=== PATIENT | male | born 1945 | race Caucasian/White ===

== ENCOUNTER → 2016-09-29 | Outpatient (CLI) | payer MEDICARE | LOC: GMAB 10:19 | PROVIDERS: ATTEND Family Medicine | DX: L03.116 Cellulitis of left lower limb (principal); E11.9 Type 2 diabetes mellitus without complications; R53.82 Chronic fatigue, unspecified; Z12.5 Encounter for screening for malignant neoplasm of prostate | CPT/HCPCS: 84403; 84443; 86140; G0103 ==

== ENCOUNTER → 2016-10-14 | Outpatient (CLI) | payer MEDICARE | END | disposition home or self-care (01) | LOC: GMAB 12:54 | PROVIDERS: ATTEND Family Medicine | DX: L03.116 Cellulitis of left lower limb (principal) ==

== ENCOUNTER → 2017-06-13 | Outpatient (CLI) | payer MEDICARE ==
--- NOTE | 2017-06-13 11:59 | RAD ---
EXAM DESCRIPTION: Knee,Right Complete CLINICAL HISTORY: 71 years, Male, PAIN COMPARISON: None TECHNIQUE: 4 views of the right knee FINDINGS: No fracture or dislocation. Bones appear normally mineralized with normal trabecular pattern. Normal appearance of medial and lateral compartments on frontal view. Lateral view shows normal position of the patella. No significant patellar spurring or enthesopathy. Question minimal suprapatellar knee joint effusion. Normal contour of quadriceps and patellar tendons. There is slight lateral right patellar tilt and with minimal subluxation on patellar sunrise view. Sclerotic focus in the posterior proximal right tibial diametaphysis appears benign. IMPRESSION: Negative for fracture or dislocation. Electronically signed by: Gómez Dickerson MD 06/13/2017 11:57 AM CDT
--- NOTE | 2017-06-13 12:37 | RAD ---
EXAM DESCRIPTION: Pelvis CLINICAL HISTORY: 71 years Male, PAIN IN RIGHT HIP COMPARISON: None. TECHNIQUE: Single frontal x-ray view of the hips and pelvis FINDINGS: No fracture. No lytic lesion. Degenerative changes are seen in the lower L-spine. Few phleboliths in the pelvis. Degenerative changes at the pubic symphysis. IMPRESSION: Negative for fracture or dislocation. Electronically signed by: Gómez Dickerson MD 06/13/2017 12:35 PM CDT
== END | disposition home or self-care (01) ==
LOC: RAD 08:04
PROVIDERS: ATTEND Orthopaedic Surgery
DX: M25.551 Pain in right hip (principal); M25.561 Pain in right knee

== ENCOUNTER → 2017-06-15 | Outpatient (CLI) | payer MEDICARE ==
--- NOTE | 2017-06-15 10:34 | MRI ---
MRI right knee without contrast INDICATION: Knee pain concern for meniscal tear medial and lateral pain initial encounter unspecified date of onset TECHNIQUE: Noncontrast MR imaging right knee standard protocol FINDINGS: Moderate joint effusion. Small Ames's cyst. Normal patellofemoral alignment. Mild surface chondrosis grade 2 patellar apex and lateral facet. There is interstitial partial tear of the PCL. The ACL is intact. Extensor tendons are intact. Mild degenerative change throughout the menisci most pronounced in the body and posterior horn medial meniscus. Mild free edge fraying and undersurface fraying posterior horn medial meniscus indicating a low-grade degenerative tear. There is also a diffuse region of grade 3 up to grade 4 chondral thinning along the intercondylar aspect medial femoral condyle. The collateral ligaments are intact. No discrete lateral meniscal tear or advanced lateral tibiofemoral chondrosis. No unstable osteochondral lesion. No fracture or focal destructive process. IMPRESSION: Age-indeterminate PCL partial tear Degenerative medial meniscus with fraying posterior horn undersurface and free edge Chondrosis grade 3-4 intercondylar aspect medial femoral condyle and surface chondrosis grade 2 patellar apex Moderate joint effusion and small Ames's cyst Electronically signed by: Sheldon Hicks MD 06/15/2017 10:33 AM CDT
== END | disposition home or self-care (01) ==
LOC: MRI 08:00
PROVIDERS: ATTEND Orthopaedic Surgery
DX: S83.206A Unspecified tear of unspecified meniscus, current injury, right knee, initial encounter (principal)

== ENCOUNTER → 2017-07-03 | Outpatient (CLI) | payer MEDICARE | LOC: RESP 10:39 | PROVIDERS: ATTEND Orthopaedic Surgery | DX: Z01.818 Encounter for other preprocedural examination (principal) ==

== ENCOUNTER → 2017-07-04 | Outpatient (CLI) | payer MEDICARE ==
--- NOTE | 2017-07-05 13:57 | CT ---
EXAM DESCRIPTION: Chest w/o Contrast : Computed Tomography. CLINICAL HISTORY: UNSPECIFIC ABNORMAL FINDING OF LUNG FLUID COMPARISON: Chest x-ray 07/03/2017. CT scan chest without contrast 11/16/2014. Chest x-ray 04/13/2015. TECHNIQUE: Spiral-axial scans at 5.0 mm intervals through the lungs and thorax without IV contrast. 2.5 mm lung algorithm axial reconstructions. Coronal and sagittal 2.0 Mm reconstructions. Total Exam DLP: 1000.67 mGy-cm. This exam was performed according to our departmental dose-optimization program which includes automated exposure control, adjustment of the mA and/or kV according to patient size and/or use of iterative reconstruction technique; to reduce radiation dose to as low as reasonably achievable (ALARA). FINDINGS: Scarring versus small infiltrate in the lateral superior segment of the right lower lobe. Small subpleural 3 mm nodule lateral right middle lobe (series 4, image 68). No large nodules or infiltrates bilaterally. No dominant masses. No pleural effusion or pneumothorax. Evaluation of the soft tissues is limited due to lack of IV contrast. Left thyroid gland is partially visualized with surgical clips in the right thyroid bed. No adenopathy in the axillary regions. No soft tissue masses in the mediastinum or hilum. No definite hilar enlargement. Atherosclerotic calcifications proximal brachiocephalic vessels and thoracic aorta with coronary artery calcifications. Prior gastric surgery. Included peritoneal space with no fluid. Normal density and size of the adrenal glands and spleen. Spondylosis T8-9 and T9-10 of the thoracic spine. Bony syndesmosis between the lateral left third and fourth ribs. Possible old trauma lateral left sixth rib. Arthrosis right sternoclavicular joint. IMPRESSION: 1. Subpleural 3 mm nodule in the right lateral middle lobe stable since prior chest CT scan in November 2014. Bilateral infiltrates present on the scan were not longer visualized. Stable scarring in the Superior Segment right lower lobe. No bilateral hilar masses or enlargement. 2. Rib fractures on the left seen on the prior CT scan are mostly healed with bony syndesmosis between the lateral left third and fourth ribs. Electronically signed by: Fitz Bucio MD 07/05/2017 1:55 PM CDT
== END ==
LOC: CT 10:30
PROVIDERS: ATTEND Family Medicine
DX: R91.8 Other nonspecific abnormal finding of lung field (principal)

== ENCOUNTER 2017-07-19 05:47 | Day surgery (SDC) | payer MEDICARE ==
--- NOTE | 2017-07-18 11:32 | HP ---
CHIEF COMPLAINT: Right knee pain. HISTORY OF PRESENT ILLNESS: Mr. Santoyo is a 71-year-old male with a history of pain in the knee. He has had an MRI and the knee does show some fraying of the meniscus with chondromalacia. He has had popping with intermittent swelling of the knee. He denies any radiation of pain or neurologic symptoms. Because of the pain he is having and the mechanical type symptoms, he has requested operative intervention. After discussing the risks, benefits and alternatives to that, the patient has given informed consent. PAST SURGICAL HISTORY: 1. Ulnar nerve transposition. MEDICATIONS: 1. Metformin. ALLERGIES: KEFLEX. CODE STATUS: Full code. IMMUNIZATIONS: Up to date. SOCIAL HISTORY: The patient does not smoke or use any illicit drugs. He does drink on occasion. FAMILY HISTORY: None pertinent to today's complaint. REVIEW OF SYSTEMS: Negative except as indicated in the History of Present Illness. PHYSICAL EXAMINATION: VITAL SIGNS: Blood pressure 122/64. Pulse 91. Height 5'11". Weight 246 pounds. MENTAL STATUS: The patient is awake, alert, and is able to give a good history and participate in the physical. The patient is oriented to person, place and time. SKIN: Normal tone and turgor. MUSCULOSKELETAL: He has pretty extreme tenderness along the medial aspect of the knee. He has palpable clicking with range of motion in addition to positive Aundrea's. He has a slight effusion. No varus/valgus or anterior/ posterior laxity. Sensation is intact. Strength is 5/5. He does lack about 5 degrees of extension. Flexion is to about 120 degrees. ASSESSMENT: 1. Medial meniscus tear. 2. Chondromalacia. PLAN: At this point, we have discussed the risks, benefits, and alternatives to operative therapy. Mr. Santoyo has given informed consent for knee arthroscopy. #[id number] [facility]
[2017-07-19] MEDS ORDERED: SODIUM CHL 0.9% 100ML MINI-BAG 0 ML IVPB ONE (06:02)
[2017-07-19] MEDS ORDERED: LACTATED RINGERS 1,000 ML ONE ×2 (06:03→07:28)
[2017-07-19] MEDS ORDERED: ceFAZolin SODIUM 1 GM VIAL ONE (06:03)
[2017-07-19] MEDS ORDERED: MIDAZOLAM INJ 2 MG/2 ML VIAL ONE (09:30)
[2017-07-19] MEDS ORDERED: fentaNYL CITRATE INJ 50 MCG/ML AMP ONE (09:31)
[2017-07-19] MEDS ORDERED: VANCOMYCIN HCL INJ 1,000 MG VIAL IVPB ONE ×3 (09:40→10:37)
[2017-07-19] MEDS ORDERED: SODIUM CHLORIDE 0.9% 250ML 250 ML ONE (09:48)
[2017-07-19] MEDS ORDERED: PROPOFOL 200 MG/20 ML VIAL IV ONE (10:00)
[2017-07-19] MEDS ORDERED: LIDOCAINE 1% 10 ML VIAL INJ ONE (10:00)
[2017-07-19] MEDS ORDERED: DEXAMETHASONE INJ 10 MG/ML VIAL IV ONE (10:00)
[2017-07-19] MEDS ORDERED: raNITIdine HCL INJ 25 MG/ML VIAL IV ONE (10:00)
[2017-07-19] MEDS ORDERED: METOCLOPRAMIDE HCL INJ 10 MG/2 ML VIAL IV ONE (10:00)
[2017-07-19] MEDS ORDERED: ROCURONIUM BROMIDE 10 MG/ML VIAL ONE (10:09)
[2017-07-19] MEDS: BUPIVACAINE 0.25% W/EPI 50 ML VIAL INJ ONE ×2 (10:15→10:47)
[2017-07-19] MEDS ORDERED: SUGAMMADEX SODIUM 200 MG/2 ML VIAL IV ONE (10:22)
[2017-07-19 13:05] VITALS: BP 125/82; TEMP 98.1; O2SAT 96
--- NOTE | 2017-07-26 11:27 | OP ---
DATE OF PROCEDURE: 07/19/17 PREOPERATIVE DIAGNOSIS: 1. Knee pain and mechanical symptoms. POSTOPERATIVE DIAGNOSIS: 1. Advanced degenerative changes of the knee. PROCEDURE: 1. Chondroplasty. SURGEON: Soren Burnett MD. BOWLING FLOOR MANAGER: Fitz Monzon CST, SA-C. ANESTHESIA: General. COMPLICATIONS: None. FINDINGS: 1. Large full thickness defects involving the medial femoral condyle with large approximately 5 mm flap tear and unstable cartilaginous base. 2. Degenerative fraying of the medial meniscus. 3. Normal anterior cruciate ligament and normal posterior cruciate ligament. 4. Normal lateral meniscus. 5. Grade 3 degenerative changes of the lateral tibial plateau. 6. Normal lateral gutter. 7. Normal suprapatellar pouch. 8. Degenerative changes of the patellofemoral joint. 9. Normal medial gutter. INDICATION: Mr. Santoyo has a history of both pain and mechanical symptoms in the knee. Because of his ongoing pain and mechanical symptoms, we discussed options for him. After discussing the risks, benefits and alternatives to operative therapy, the patient has given informed consent. PROCEDURE: The patient was brought to the Operating Room and placed in supine position. General anesthesia was induced and the patient's leg was sterilely prepped and draped. Following prepping and draping, standard anteromedial and anterolateral portals were established. Diagnostic arthroscopy was carried out with the above findings. Following complete diagnostic arthroscopy, attention was focused on the medial femoral condyle. The cartilaginous surfaces were debrided to stable base and the large flap tear of cartilage was removed. Attention was then directed at the lateral tibial plateau. A 3.5 mm full radius shaver was used to debride the tibial plateau. The knee was thoroughly irrigated and drained. Following irrigating and draining of the knee, the wounds were closed with Nylon suture. Sterile dressings were placed. The patient was awoken from anesthesia and taken to Recovery. POSTOPERATIVE INSTRUCTIONS: The patient will be partial weightbearing until followup with us. We will discuss further treatment options for him based on his response. #[id number] [facility] SYSTEM[facility]
== END 2017-07-19 12:05 | disposition home or self-care (01) ==
LOC: AMB 05:47
PROVIDERS: ATTEND Orthopaedic Surgery
DX: M23.203 Derangement of unspecified medial meniscus due to old tear or injury, right knee (principal); M94.261 Chondromalacia, right knee; M17.11 Unilateral primary osteoarthritis, right knee; E11.9 Type 2 diabetes mellitus without complications; E66.9 Obesity, unspecified; Z68.34 Body mass index [BMI] 34.0-34.9, adult; Z88.8 Allergy status to other drugs, medicaments and biological substances; Z79.84 Long term (current) use of oral hypoglycemic drugs
CPT/HCPCS: 01400; 29877; 36416; 82948; J1100; J2250; J2765; J2780; J3010; J3370; J3490; J7050; J7120

== ENCOUNTER → 2018-05-24 | Outpatient (CLI) | payer MEDICARE | LOC: GMAE 10:54 | PROVIDERS: ATTEND Family Medicine | DX: I10 Essential (primary) hypertension (principal); Z12.5 Encounter for screening for malignant neoplasm of prostate | CPT/HCPCS: 84443; G0103 ==

== ENCOUNTER → 2018-06-18 | Outpatient (CLI) | payer MEDICARE ==
--- NOTE | 2018-06-18 12:14 | US ---
EXAM DESCRIPTION: Aorta: Ultrasound. CLINICAL HISTORY: ENCOUNTER FOR SCREENING FOR OTHER DISORDER COMPARISON: Chest CT scan without contrast 07/04/2017. TECHNIQUE: Transcutaneous scanning: Two-dimensional and Doppler modes. FINDINGS: Abdominal aorta diameter - Proximal: 2.8 x 2.7 x 2.1 cm. Mid: 2.8 x 2.3 x 2.1 cm. Distal: 2.3 x 1.9 x 1.8 cm. Common Iliac diameter -cannot be evaluated due to intestinal gas. Other: Atherosclerotic irregularity of the intima of the aorta.. IMPRESSION: Proximal and mid abdominal aorta with maximum diameter 2.8 cm consistent with ectasia. [facility] Best Practice recommendations: no further imaging follow-up recommended. Electronically signed by: Fitz Bucio MD 06/18/2018 12:11 PM CDT
== END ==
LOC: US 06-14 09:12
PROVIDERS: ATTEND Family Medicine
DX: Z13.89 Encounter for screening for other disorder (principal); I77.811 Abdominal aortic ectasia

== ENCOUNTER 2018-10-28 13:01 | Emergency (ER) | payer MEDICARE ==
[2018-10-28] MEDS ORDERED: SODIUM CHLORIDE 0.9% 1000ML 1,000 ML IVS ONE (13:32)
[2018-10-28] MEDS ORDERED: IPRATROPIUM/ALBUTEROL 3 ML VIAL NEB ONE (13:32)
--- NOTE | 2018-10-28 13:36 | ED.PDOC ---
History of Present Illness - General Chief Complaint: Problem Stated Complaint: Urgency, frequency, aching all over Time Seen by Provider: 10/28/18 13:31 Source: patient, family Exam Limitations: no limitations - History of Present Illness Initial Comments: patient comes in today for all over body aches and change in urination. Patient states on Monday started having body aches and malaise with subjective fever, sweats, and chills. Patient states he is also noted that although it doesn't hurt to urinate when he urinated only to pass a small amount 8 having to go more often. He had an episode of prostatitis several years ago and those symptoms are very similar. Patient had no nausea, vomiting, diarrhea, or constipation. He's had no cough or nasal congestion and no shortness of breath. However, patient states every time he goes into the doctor's office his oxygen levels are low but he has never been tried on breathing treatments nor has he had spirometry. Patient was a long-time smoker but switched to vaping 8 years ago. Patient has a past medical history of diabetes mellitus but no hypertension, hyperlipidemia or coronary artery disease. Timing/Duration: getting worse Severity: moderate Improving Factors: nothing Worsening Factors: nothing Associated Symptoms: fever/chills, malaise, other - urinary frequency and decreased flow Allergies/Adverse Reactions: Allergies Cephalexin [From Keflex] Allergy (Verified 10/28/18 13:17) Rash Home Medications: Ambulatory Orders Metformin HCl [Metformin Hydrochloride] 500 mg PO BID 12/27/13 Oxybutynin Chloride 5 mg PO TID 10/28/18 Sulfa/Trimeth 800/160 (Ds) Tab [Bactrim DS] 1 tablet PO BID 28 Days #56 tab 10/28/18 Review of Systems - Review of Systems Constitutional: States: chills, diaphoresis, fever, malaise EENTM: States: no symptoms reported. Denies: blurred vision, ear pain, ear discharge, nose congestion, throat pain Respiratory: States: no symptoms reported. Denies: cough, short of breath, wheezing Cardiology: States: no symptoms reported. Denies: chest pain, edema, palpitations Gastrointestinal/Abdominal: States: no symptoms reported. Denies: abdominal pain, constipation, diarrhea, nausea, vomiting Genitourinary: States: see HPI Past Medical History (General) - Patient Medical History Hx Seizures: No Hx Stroke: No Hx Dementia: No Hx Asthma: No Hx of COPD: No Hx Cardiac Disorders: No Hx Congestive Heart Failure: No Hx Pacemaker: No Hx Hypertension: Yes Hx Thyroid Disease: No Hx Diabetes: Yes Hx Gastroesophageal Reflux: No Hx Renal Disease: No Hx Cancer: Yes - skin carcinoma on nose Hx of HIV: No Hx Hepatitis C: No Hx MRSA: No Surgical History: cholecystectomy, colectomy - Vaccination History Hx Tetanus, Diphtheria Vaccination: No Hx Influenza Vaccination: Yes Hx Pneumococcal Vaccination: Yes - Social History Hx Tobacco Use: Yes - Quit smoking cigs 2009; Does vape Hx Chewing Tobacco Use: No Hx Alcohol Use: No Hx Substance Use: No Hx Substance Use Treatment: No Hx Depression: No Hx Physical Abuse: No Hx Emotional Abuse: No Hx Suspected Abuse: No - Female History Patient : No Family Medical History - Family History Father Living Status: Hx Family Diabetes: Yes Hx Family Cancer: Yes Hx Family;Other: Father: Lung cancer Mother Living Status: Hx Family Cancer: Yes Hx Family;Other: Mother: Breast Cancer Physical Exam - Physical Exam General Appearance: Alert, Comfortable, No apparent distress Eye Exam: bilateral normal Ears, Nose, Throat: hearing grossly normal, normal ENT inspection, normal phary nx Neck: non-tender, full range of motion, supple, normal inspection Respiratory: chest non-tender, no respiratory distress, decreased breath sounds Cardiovascular/Chest: normal peripheral pulses, regular rate, rhythm, no edema, no murmur Peripheral Pulses: radial,right: 2+, radial,left: 2+ Gastrointestinal/Abdominal: normal bowel sounds, non tender, soft Rectal Exam: other - enlarged boggy prostate Back Exam: no CVA tenderness Neurologic: alert, oriented x 3 Progress - Progress Progress: 10/28/18 15:14 improved O2 sats and air flow after Duoneb. Patient understands that needs further studies and possibly O2 at night. Will need to follow up with PCP. - Results/Orders Results/Orders: 10/28/18 14:29 Urine Culture Stat 10/29/18 09:00 Oxygen Daily [facility] Daily Laboratory Results WBC 12.0 K/mm3 (4.8-10.8) H 10/28/18 13:32 RBC 4.94 M/mm3 (4.70-6.10) 10/28/18 13:32 Hgb 15.1 gm/dL (14.0-18.0) 10/28/18 13:32 Hct 44.4 % (42.0-52.0) 10/28/18 13:32 MCV 89.9 fl (80.0-94.0) 10/28/18 13:32 MCH 30.5 pg (27.0-31.0) 10/28/18 13:32 MCHC 33.9 g/dL (33.0-37.0) 10/28/18 13:32 RDW 13.9 % (11.5-14.5) 10/28/18 13:32 Plt Count 141 K/mm3 (130-400) 10/28/18 13:32 MPV 8.1 fl (7.40-10.4) 10/28/18 13:32 Absolute Neuts (auto) 10.20 K/uL (1.8-6.8) H 10/28/18 13:32 Absolute Lymphs (auto) 0.60 K/uL (1.0-3.4) L 10/28/18 13:32 Absolute Monos (auto) 1.00 K/uL (0.2-0.8) H 10/28/18 13:32 Absolute Eos (auto) 0.10 K/uL (0.0-0.4) 10/28/18 13:32 Absolute Basos (auto) 0.10 K/uL (0.0-0.1) 10/28/18 13:32 Neutrophils % 85.2 % (42.0-78.0) H 10/28/18 13:32 Lymphocytes % 5.1 % (20.0-50.0) L 10/28/18 13:32 Monocytes % 8.4 % (2.0-9.0) 10/28/18 13:32 Eosinophils % 0.8 % (1.0-5.0) L 10/28/18 13:32 Basophils % 0.5 % (0.0-2.0) 10/28/18 13:32 Sodium 134 mmol/L (135-145) L 10/28/18 13:32 Potassium 4.3 mmol/L (3.6-5.0) 10/28/18 13:32 Chloride 98 mmol/L (101-111) L 10/28/18 13:32 Carbon Dioxide 27 mmol/L (21-31) 10/28/18 13:32 Anion Gap 13.3 (12-18) 10/28/18 13:32 BUN 17 mg/dL (7-18) 10/28/18 13:32 Creatinine 0.63 mg/dL (0.6-1.3) 10/28/18 13:32 BUN/Creatinine Ratio 27.0 (10-20) H 10/28/18 13:32 Random Glucose 331 mg/dL (70-105) H 10/28/18 13:32 Serum Osmolality 282.7 mOsm/L (275-295) 10/28/18 13:32 Lactic Acid 1.5 mmol/L (0.5-2.2) 10/28/18 13:32 Calcium 8.5 mg/dL (8.4-10.2) 10/28/18 13:32 Total Bilirubin 2.4 mg/dL (0.2-1.0) H* 10/28/18 13:32 AST 21 IU/L (10-42) 10/28/18 13:32 ALT 18 IU/L (10-60) 10/28/18 13:32 Alkaline Phosphatase 76 IU/L (42-121) 10/28/18 13:32 Serum Total Protein 6.5 gm/dL (6.4-8.2) 10/28/18 13:32 Albumin 3.3 g/dl (3.2-5.5) 10/28/18 13:32 Globulin 3.2 gm/dL (2.3-3.5) 10/28/18 13:32 Albumin/Globulin Ratio 1.0 (1.1-1.9) L 10/28/18 13:32 Urine Color Yellow (Yellow) 10/28/18 14:29 Urine Appearance Cloudy (Clear) 10/28/18 14:29 Urine pH 5.5 (4.5-7.8) 10/28/18 14:29 Ur Specific [place] 1.020 (1.005-1.030) 10/28/18 14:29 Urine Protein Negative mg/dL 10/28/18 14:29 Urine Glucose (UA) >=1000 mg/dL (Negative) H 10/28/18 14:29 Urine Ketones 15 mg/dL (NEGATIVE) H 10/28/18 14:29 Urine Blood Small (Negative) H 10/28/18 14:29 Urine Nitrite Positive H 10/28/18 14:29 Urine Bilirubin Negative (NEGATIVE) 10/28/18 14:29 Urine Urobilinogen 4.0 mg/dL (0.2-1.0) H 10/28/18 14:29 Ur Leukocyte Esterase Trace (Negative) H 10/28/18 14:29 Urine RBC 0-1 /hpf 10/28/18 14:29 Urine WBC 5-10 /hpf H 10/28/18 14:29 Ur Epithelial Cells 0 /hpf 10/28/18 14:29 Urine Bacteria 2+ H 10/28/18 14:29 Patient Name: JAYLEN RODRIGUEZ Gender: Male Date of : 1945 Referring Physician: JUNIOR WALLACE Organization: [facility] Accession Number: [id number] Requested Date: October 28, 2018 13:32 Report Status: Final Requested Procedure: 1 Procedure Description: Chest,2 Views Modality: CR Findings Reporting MD: Nirali Valle Fellow MD: Not available Dictation Time: Dog Warden: Not available Java Sdet Date: EXAM: XR Chest, 2 Views CLINICAL HISTORY: shortness of breath TECHNIQUE: Frontal and lateral views of the chest. COMPARISON: 07/04/2017. FINDINGS: Limitations: None. Lungs: Mild atelectasis and/or scarring in both lung bases. Pleural space: Unremarkable. No pneumothorax. Heart: Unremarkable. No cardiomegaly. Mediastinum: Unremarkable. Bones/joints: Unremarkable. Upper abdomen: Stable right diaphragmatic elevation. IMPRESSION: Mild atelectasis and/or scarring in both lung base Departure - Departure Clinical Impression: Hypoxia Prostatitis Qualifiers: Prostatitis type: acute Qualified Code(s): N41.0 - Acute prostatitis Disposition: Discharge to Home or Self Care Condition: Fair Departure Forms: ED Discharge - Pt. Copy, Patient Portal Self Enrollment Referrals: JESSE HIGGINS MD [Primary Care Provider] - 1-2 Weeks Prescriptions: Sulfa/Trimeth 800/160 (Ds) Tab [Bactrim DS] 1 tablet PO BID 28 Days #56 tab Home Medications: Ambulatory Orders Metformin HCl [Metformin Hydrochloride] 500 mg PO BID 12/27/13 Oxybutynin Chloride 5 mg PO TID 10/28/18 Sulfa/Trimeth 800/160 (Ds) Tab [Bactrim DS] 1 tablet PO BID 28 Days #56 tab 10/28/18 Additional Instructions: follow up in clinic with PCP on Monday. Will need O2 study and spirometry for hypoxia improved with breathing treatment. Return to ER for intractable emesis, shortness of breath, chest pain. Stop Vaping
[2018-10-28] MEDS ORDERED: SULFA/TRIMETH 800/160 (DS) TAB 1 EA TAB PO ONE (14:46)
--- NOTE | 2018-10-28 14:53 | RAD ---
EXAM: XR Chest, 2 Views CLINICAL HISTORY: shortness of breath TECHNIQUE: Frontal and lateral views of the chest. COMPARISON: 07/04/2017. FINDINGS: Limitations: None. Lungs: Mild atelectasis and/or scarring in both lung bases. Pleural space: Unremarkable. No pneumothorax. Heart: Unremarkable. No cardiomegaly. Mediastinum: Unremarkable. Bones/joints: Unremarkable. Upper abdomen: Stable right diaphragmatic elevation. IMPRESSION: Mild atelectasis and/or scarring in both lung bases. Electronically signed by: Nirali Valle MD 10/28/2018 2:52 PM CDT
[2018-10-28 16:08] VITALS: BP 120/76; TEMP 98.7; O2SAT 95
== END 2018-10-28 15:20 | disposition home or self-care (01) ==
LOC: ER 13:01
DX: R09.02 Hypoxemia (principal); N41.0 Acute prostatitis; F17.290 Nicotine dependence, other tobacco product, uncomplicated; E11.9 Type 2 diabetes mellitus without complications; Z85.828 Personal history of other malignant neoplasm of skin; Z79.84 Long term (current) use of oral hypoglycemic drugs; Z79.899 Other long term (current) drug therapy; Z88.1 Allergy status to other antibiotic agents
CPT/HCPCS: 36415; 71046; 80053; 81001; 83605; 85025; 87077; 87086; 87186; 94640; J7030; J7620

== ENCOUNTER → 2018-11-09 | Outpatient (CLI) | payer MEDICARE ==
[~2018-11-09] MED LIST: ALBUTEROL SULFATE 2.5 MG/3 ML VIAL NEB ONE
== END ==
LOC: RESP 10:04
PROVIDERS: ATTEND Family Medicine
DX: R09.02 Hypoxemia (principal)
CPT/HCPCS: 94060; J7611

== ENCOUNTER → 2019-01-14 | Outpatient (CLI) | payer MEDICARE ==
--- NOTE | 2019-01-14 13:42 | RAD ---
EXAM DESCRIPTION: Chest,2 Views CLINICAL HISTORY: RESTRICTIVE LUNG DISEASE COMPARISON: Previous study October 28, 2018 TECHNIQUE: PA/lateral FINDINGS: Plate and screws of the left clavicle. Right hemidiaphragm is elevated. Small lung volumes. Heart size is normal with normal pulmonary vascularity. No pleural effusion or pneumothorax. Discoid atelectasis in both lung bases. No consolidating infiltrate. Lateral view shows intact sternum and T-spine. IMPRESSION: No acute process is identified in the chest. Electronically signed by: Gómez Dickerson MD 01/14/2019 1:40 PM VISCOSITY INSPECTOR
== END ==
LOC: RAD 12:15
PROVIDERS: ATTEND Internal Medicine
DX: J98.4 Other disorders of lung (principal); Q79.1 Other congenital malformations of diaphragm

== ENCOUNTER → 2019-01-23 | Outpatient (CLI) | payer MEDICARE ==
--- NOTE | 2019-01-23 16:55 | CT ---
PROCEDURE: Chest w/o Contrast CLINICAL HISTORY: 73 years Male RESTRICTIVE LUNG DISEASE COMPARISON: 07/04/2017. TECHNIQUE: Contiguous axial images were obtained through the chest without IV contrast. Reformatted images obtained. Multiplanar reformatted images obtained. This exam was performed according to our department optimization program which includes automated exposure control, adjustment of the mA and/or kv according to patient size and/or use of iterative reconstruction technique. FINDINGS: Aorta is normal in caliber without evidence of aneurysm or rupture. There is calcification in aorta and in the coronary arteries. No significant mediastinal or hilar adenopathy. No pleural or pericardial effusion. Elevation of the right hemidiaphragm there is a small amount of atelectasis in the right middle lobe. There is atelectasis in the right lung base which appears to have increased when compared to the previous examination. Some developing infiltrate within this is thought less likely although not excluded. Areas of atelectasis are also present along the left lung base and lingula which appear more prominent than on the previous exam. No additional evidence to suggest alveolar consolidation or pneumothorax. Small nodule in the right middle lobe is not well seen on today's examination. IMPRESSION: Elevation of the right hemidiaphragm with atelectasis in the right middle lobe and increasing density in the right perihilar region and lower lobe suggesting atelectasis. Small amount of associated infiltrate is not entirely excluded Additional areas of atelectasis in the anterior left lower lobe and lingula No significant thoracic adenopathy Electronically signed by: Ashly Ovalles MD 01/23/2019 4:53 PM RN [facility]RG[facility]
== END ==
LOC: CT 15:31
PROVIDERS: ATTEND Internal Medicine
DX: J98.4 Other disorders of lung (principal); J98.11 Atelectasis

== ENCOUNTER → 2019-06-26 | Outpatient (CLI) | payer MEDICARE | LOC: GMAE 11:30 | PROVIDERS: ATTEND Family Medicine | DX: I10 Essential (primary) hypertension (principal); E11.9 Type 2 diabetes mellitus without complications; Z12.5 Encounter for screening for malignant neoplasm of prostate | CPT/HCPCS: 84443; G0103 ==

== ENCOUNTER → 2019-08-16 | Outpatient (CLI) | payer MEDICARE ==
--- NOTE | 2019-08-19 08:16 | RAD ---
EXAM DESCRIPTION: Chest,2 Views CLINICAL HISTORY: EVALUATE FOR RT HEMIDIAPHRAGM PARALYSIS COMPARISON: Previous chest x-ray January 14, 2019, CT chest January 23, 2019 TECHNIQUE: PA/lateral FINDINGS: Right hemidiaphragm is elevated. Inspiratory and expiratory views are obtained then findings would suggest decreased movement of the right diaphragm compared to the left side. Heart size is prominent with centrally prominent pulmonary vascularity. Plate and screws in the left clavicle. Linear scarring or discoid atelectasis in the peripheral left lung base. Old healed left rib fractures. No pleural effusion or pneumothorax. Lungs are clear with no consolidating infiltrate. Lateral view shows intact sternum and T-spine. IMPRESSION: Elevated right hemidiaphragm. Discoid atelectasis in the left lung base. Electronically signed by: Gómez Dickerosn MD 08/19/2019 8:14 AM CDT
== END ==
LOC: RAD 16:06
PROVIDERS: ATTEND Internal Medicine
DX: Q79.1 Other congenital malformations of diaphragm (principal); J98.11 Atelectasis; J18.9 Pneumonia, unspecified organism; J81.1 Chronic pulmonary edema; R09.02 Hypoxemia; J98.4 Other disorders of lung

== ENCOUNTER → 2019-12-17 | Outpatient (CLI) | payer MEDICARE | LOC: GMAE 14:22 | PROVIDERS: ATTEND Family Medicine | DX: Z01.818 Encounter for other preprocedural examination (principal) ==

== ENCOUNTER 2020-01-31 09:27 | Inpatient (IN) | payer MEDICARE ==
--- NOTE | 2020-01-31 09:38 | ED.PDOC ---
History of Present Illness - General Time Seen by Provider: 01/31/20 09:29 Source: patient, RN notes reviewed, Vital Signs reviewed Exam Limitations: no limitations - History of Present Illness Comments: 74 yo male hx of CAD comes in with 2 days of generalized malaise, sore throat, fatigue, body aches. no shortness of breath, but does have cough. no change in tatste or smell. Was seen in urgent care had resp panel done, was told due to his symptoms he should be evaluated in ER. denies any chest pain. patient use to be on oxygen for a hemidiaphragm, but no longer on oxygen. Allergies/Adverse Reactions: Allergies Cephalexin [From Keflex] Allergy (Verified 01/31/20 10:03) Rash Home Medications: Ambulatory Orders Metformin HCl [Metformin Hydrochloride] 500 mg PO BID 12/27/13 Semaglutide [Ozempic] 2 mg SC WKLY 01/31/20 Review of Systems - Review of Systems Constitutional: States: malaise. Denies: chills, fever EENTM: States: throat pain. Denies: blurred vision, nose congestion Respiratory: States: cough. Denies: short of breath Cardiology: Denies: chest pain, palpitations, syncope Gastrointestinal/Abdominal: Denies: abdominal pain, diarrhea, nausea, vomiting Genitourinary: Denies: frequency, hematuria Musculoskeletal: States: muscle pain. Denies: back pain Skin: Denies: rash Neurological: Denies: numbness, paresthesia, pre-existing deficit, tremors, weakness Endocrine: Denies: unexplained weight gain, unexplained weight loss Hematologic/Lymphatic: Denies: easy bleeding, easy bruising Past Medical History (General) - Patient Medical History Hx Seizures: No Hx Stroke: No Hx Dementia: No Hx Asthma: No Hx of COPD: No Hx Cardiac Disorders: Yes - 2 stents Hx Congestive Heart Failure: No Hx Pacemaker: No Hx Hypertension: Yes Hx Thyroid Disease: No Hx Diabetes: Yes Hx Gastroesophageal Reflux: No Hx Renal Disease: No Hx Cancer: Yes - skin carcinoma on nose Hx of HIV: No Hx Hepatitis C: No Hx MRSA: No Surgical History: other - cardiac stents x 2 - Vaccination History Hx Tetanus, Diphtheria Vaccination: No Hx Influenza Vaccination: Yes Hx Pneumococcal Vaccination: Yes - Social History Hx Tobacco Use: Yes - Quit smoking cigs 2009; Does vape Hx Chewing Tobacco Use: No Hx Alcohol Use: No Hx Substance Use: No Hx Substance Use Treatment: No Hx Depression: No Hx Physical Abuse: No Hx Emotional Abuse: No Hx Suspected Abuse: No - Female History Patient : No Family Medical History - Family History Father Living Status: Hx Family Diabetes: Yes Hx Family Cancer: Yes Hx Family;Other: Father: Lung cancer Mother Living Status: Hx Family Cancer: Yes Hx Family;Other: Mother: Breast Cancer Physical Exam - Physical Exam General Appearance: Alert, Comfortable, No apparent distress, Well Developed, Well Groomed, Well Hydrated, Well Nourished Eye Exam: bilateral normal ENT Exam: normal ENT inspection, hearing grossly normal, TMs normal Neck: non-tender, full range of motion, supple, normal inspection, trachea midline Respiratory: chest non-tender, lungs clear, normal breath sounds, no respiratory distress, no accessory muscle use Cardiovascular/Chest: normal peripheral pulses, regular rate, rhythm, no edema, no gallop, no JVD, no murmur Gastrointestinal/Abdominal: normal bowel sounds, non tender, soft, no organomegaly, no pulsatile mass Extremity: normal range of motion, non-tender, normal inspection, no pedal edema, no calf tenderness, normal capillary refill Neurologic: seasonal greenery bundler II-XII nml as tested, no motor/sensory deficits, alert, normal mood/affect, oriented x 3 Skin Exam: normal color, warm/dry Progress - Progress Progress: 01/31/20 15:52 patient COVID + given remdesivir, dexamethasone. will monitor glucose closely. given NS bolus for hyperglycemia. may need to put on insulin while on steroids. The data reviewed when caring for this patient included: nurse notes, prior records, etc. The history and assessments from nurses notes were reviewed and considered, and the patient's home medication list was also reviewed and co nsidered. My assessment and the results of testing completed here in the ED were discussed with the patient/family. All questions were answered, and they express understanding of my assessment and the plan. patient was transferred to floor in stable condition. Melina Rebolledo DO #[id number] - Results/Orders Results/Orders: 01/31/20 09:45 Pulse Ox, Continuous Monitoring STAT 01/31/20 10:18 STREP A SCREEN CULTURE Stat 01/31/20 13:39 ED Intent to Admit Routine 02/01/20 09:45 Pulse Ox, Continuous Monitoring STAT 02/02/20 09:45 Pulse Ox, Continuous Monitoring STAT Laboratory Results WBC 3.6 K/mm3 (4.8-10.8) L 01/31/20 10:05 RBC 5.15 M/mm3 (4.70-6.10) 01/31/20 10:05 Hgb 15.8 gm/dL (14.0-18.0) 01/31/20 10:05 Hct 46.5 % (42.0-52.0) 01/31/20 10:05 MCV 90.3 fl (80.0-94.0) 01/31/20 10:05 MCH 30.6 pg (27.0-31.0) 01/31/20 10:05 MCHC 33.9 g/dL (33.0-37.0) 01/31/20 10:05 RDW 13.3 % (11.5-14.5) 01/31/20 10:05 Plt Count 138 K/mm3 (130-400) 01/31/20 10:05 MPV 7.8 fl (7.40-10.4) 01/31/20 10:05 Absolute Neuts (auto) 2.20 K/uL (1.8-6.8) 01/31/20 10:05 Absolute Lymphs (auto) 0.50 K/uL (1.0-3.4) L 01/31/20 10:05 Absolute Monos (auto) 0.80 K/uL (0.2-0.8) 01/31/20 10:05 Absolute Eos (auto) 0.10 K/uL (0.0-0.4) 01/31/20 10:05 Absolute Basos (auto) 0.00 K/uL (0.0-0.1) 01/31/20 10:05 Neutrophils % 62.8 % (42.0-78.0) 01/31/20 10:05 Lymphocytes % 13.8 % (20.0-50.0) L 01/31/20 10:05 Monocytes % 21.2 % (2.0-9.0) H 01/31/20 10:05 Eosinophils % 1.5 % (1.0-5.0) 01/31/20 10:05 Basophils % 0.7 % (0.0-2.0) 01/31/20 10:05 PTT (SP) 26.1 SECONDS (21.8-31.6) 01/31/20 10:05 D-Dimer, Quantitative < 131.0 ng/ml (131-400) L 01/31/20 10:05 Sodium 139 mmol/L (135-145) 01/31/20 10:05 Potassium 4.3 mmol/L (3.6-5.0) 01/31/20 10:05 Chloride 102 mmol/L (101-111) 01/31/20 10:05 Carbon Dioxide 28 mmol/L (21-31) 01/31/20 10:05 Anion Gap 13.3 (12-18) 01/31/20 10:05 BUN 18 mg/dL (7-18) 01/31/20 10:05 Creatinine 0.61 mg/dL (0.6-1.3) 01/31/20 10:05 BUN/Creatinine Ratio 29.5 (10-20) H 01/31/20 10:05 Random Glucose 213 mg/dL (70-105) H 01/31/20 10:05 Serum Osmolality 285.8 mOsm/L (275-295) 01/31/20 10:05 Calcium 8.6 mg/dL (8.4-10.2) 01/31/20 10:05 Magnesium 1.8 mg/dL (1.8-2.5) 01/31/20 10:05 Total Bilirubin 1.1 mg/dL (0.2-1.0) H 01/31/20 10:05 AST 18 IU/L (10-42) 01/31/20 10:05 ALT 21 IU/L (10-60) 01/31/20 10:05 Alkaline Phosphatase 61 IU/L (42-121) 01/31/20 10:05 LD Total 115 IU/L (91-180) 01/31/20 10:05 Creatine Kinase 71 IU/L (38-174) 01/31/20 10:05 Troponin I < 0.02 ng/mL (0.01-0.05) 01/31/20 10:05 C-Reactive Protein 1.2 mg/dL (0-1.0) H 01/31/20 10:05 B-Natriuretic Peptide < 15.0 pg/ml (0-100) 01/31/20 10:05 Serum Total Protein 7.0 gm/dL (6.4-8.2) 01/31/20 10:05 Albumin 3.8 g/dl (3.2-5.5) 01/31/20 10:05 Globulin 3.2 gm/dL (2.3-3.5) 01/31/20 10:05 Albumin/Globulin Ratio 1.2 (1.1-1.9) 01/31/20 10:05 Group A Strep Rapid Negative (NEGATIVE) 01/31/20 10:18 - EKG/XRAY/CT XRAY: chest - cardiomeagly, pulmonary congestion, right hemidiaphragm Departure - Departure Clinical Impression: Hypoxia, COVID-19 Home Medications: Ambulatory Orders Metformin HCl [Metformin Hydrochloride] 500 mg PO BID 12/27/13 Semaglutide [Ozempic] 2 mg SC WKLY 01/31/20 Decision To Admit - Decistion To Admit Decision to Admit Reason: Medical Nature Decision to Admit Date: 01/31/20 Decision to Admit Time: 10:20
--- NOTE | 2020-01-31 10:06 | RAD ---
EXAM DESCRIPTION: Chest,1 View CLINICAL HISTORY: covid FINDINGS/ IMPRESSION: Comparison 08/16/2019 Mild cardiomegaly. Prominent central vasculature. No edema, infiltrate or effusion. Continued elevation of the right hemidiaphragm Electronically signed by: Donovan Borges MD 01/31/2020 10:04 AM [facility]
[2020-01-31] MEDS ORDERED: REMDESIVIR 200 MG in SODIUM CHLORIDE 0.9% 250ML 250 ML IVPB ONE (10:33)
[2020-01-31] MEDS ORDERED: DEXAMETHASONE INJ 4 MG/ML VIAL IV ONE (11:37)
[2020-01-31] MEDS ORDERED: SODIUM CHLORIDE 0.9% 1000ML 1,000 ML IVS ONE (11:37)
--- NOTE | 2020-01-31 14:55 | HP ---
SUPERVISING PHYSICIAN: Juan F Henriquez MD CHIEF COMPLAINT: Shortness of breath. HISTORY OF PRESENT ILLNESS: This is a 74 year-old male patient with a medical history of diabetes who came to the Emergency Room with a 2-day history of malaise, sore throat, fatigue, body aches. He has significant complaint of shortness of breath, however, was seen at the [facility] and Covid tested. Apparently, this came back positive. He came to the Emergency Room due to low 02 saturations. In the Emergency Room, his workup revealed initial vital signs of oxygen saturations of 92% on room air which dropped to the high 80s at times. Therefore, he was placed on oxygen. Additional lab work was done and showed a white count of 3.6, stable hemoglobin, D-dimer less than 131. CRP 1.2, glucose elevated at 214, total bilirubin 1.1. Troponin negative. Chest x-ray was done and showed a little bit of pulmonary vascular congestion but not the traditional patchy infiltrates normally seen on Covid-19 patients. He was referred for admission due to hypoxia. At time of the examination, the patient is alert and in no distress. PAST MEDICAL HISTORY: 1. Diabetes mellitus. 2. Cardiovascular disease. 3. Skin cancer. 4. Hypertension. PAST SURGICAL HISTORY: 1. Gallbladder. 2. Tonsillectomy. 3. Chondroplasty of the knee. 4. PTCA with stents x2, CURRENT MEDICATIONS: 1. Metformin 500 mg b.i.d. 2. Ozempic 2 mg subcutaneous weekly. ALLERGIES: KEFLEX FAMILY HISTORY: Reviewed and noncontributory to the current illness. SOCIAL HISTORY: The patient is a nondrinker, nonsmoker, no illicit drugs. He dos have a history of smoking, he quit n 2009 but does vape. REVIEW OF SYSTEMS: CONSTITUTIONAL: Positive for fever and chills and fatigue. No recent weight loss or weight gain. HEENT: No headaches, vision changes, ear pain, nasal congestion. He does have a sore throat. RESPIRATORY: Positive for cough and shortness of breath. No pleuritic chest pain. CARDIOVASCULAR: No chest pain, palpitations or peripheral edema. GASTROINTESTINAL: No nausea, vomiting, diarrhea, constipation or abdominal pain. GENITOURINARY: No dysuria, frequency or flank pain. ENDOCRINE: No polydipsia, polyuria or polyphagia. No heat or cold intolerance. MUSCULOSKELETAL: No joint pain, joint swelling or muscle cramps. NEUROLOGIC: No syncope, paresthesias or seizures. PHYSICAL EXAMINATION: VITAL SIGNS: Blood pressure 112/59, heart rate 83, respiratory rate 18, temperature 98.3, oxygen saturation 95% on 3 liters nasal cannula. GENERAL: This is a 75 year-old male patient who is in no active distress currently. CHEST: Lungs are diminished. CARDIOVASCULAR: Regular rate and rhythm. Normal S1, S2. ABDOMEN: Soft, positive bowel sounds. EXTREMITIES: Lower extremities with no edema. NEUROLOGIC: The patient is alert. LABORATORY/FILMS: As discussed in history of present illness. ASSESSMENT: 1. COVID-19 pneumonitis. 2. Hypertension. 3. Diabetes mellitus type 2. PLAN: The patient will be admitted for typical temperature of Covid pneumonitis including dexamethasone, Remdesivir, azithromycin. We will hold off on Ceftriaxone due to his Keflex allergy. We placed him on scheduled albuterol inhaler as well as Mucinex. I am going to put him on bronchial hygiene as well, put him on Lovenox for DVT prophylaxis. #[id number] [facility]
[2020-01-31] MEDS ORDERED: SODIUM CHLORIDE 0.9% (FLUSH) 10 ML SYG IV PRN (16:05)
[2020-01-31] MEDS ORDERED: GLUCAGON INJ 1 MG VIAL SUBCU PRN (16:05)
[2020-01-31] MEDS ORDERED: DEXTROSE 50% 25 GM/50 ML SYG IV PRN (16:05)
[2020-01-31] MEDS ORDERED: IV SET AND CAP CHANGE INJ INJ SCH (16:30)
[2020-01-31] MEDS: metFORMIN HCL 500 MG TAB PO SCH (17:46)
[2020-01-31] MEDS: INSULIN LISPRO 100 UNITS/ML PEN SUBCU SCH ×2 (17:47→21:06)
[2020-01-31] MEDS: AZITHROMYCIN IV 500 MG in SODIUM CHLORIDE 0.9% 250ML 250 ML IVPB SCH (17:47)
[2020-01-31] MEDS ORDERED: guaiFENesin ER TAB 600 MG TAB ONE (19:38)
[2020-01-31] MEDS: guaiFENesin ER TAB 600 MG TAB PO SCH (20:59)
[2020-01-31] MEDS: ALBUTEROL INHALER 64 PUFF/8GM INH SCH (21:21)
[2020-02-01] MEDS: ALBUTEROL INHALER 64 PUFF/8GM INH SCH ×4 (07:52→21:06)
[2020-02-01] MEDS: INSULIN LISPRO 100 UNITS/ML PEN SUBCU SCH ×4 (08:47→20:26)
[2020-02-01] MEDS: REMDESIVIR 100 MG in SODIUM CHLORIDE 0.9% 250ML 250 ML IVPB SCH (10:39)
[2020-02-01] MEDS: guaiFENesin ER TAB 600 MG TAB PO SCH ×2 (10:40→20:17)
[2020-02-01] MEDS: DEXAMETHASONE INJ 10 MG/ML VIAL IV SCH (10:40)
[2020-02-01] MEDS: metFORMIN HCL 500 MG TAB PO SCH ×3 (10:40→17:04)
--- NOTE | 2020-02-01 11:38 | PCM.PROG ---
PCM Subjective - Review of Systems Events since last encounter: Patient without complaints of dyspnea or cough. States he feels okay, but still requiring oxygen to maintain acceptable saturations. Objective - Exam Vitals and I&O: Vital Signs Temp 97.8 F 02/01/20 03:00 Pulse 74 02/01/20 03:00 Resp 18 02/01/20 03:00 BP 116/68 02/01/20 03:00 Pulse Ox 98 02/01/20 07:50 Intake & Output 01/31/20 02/01/20 02/01/20 18:59 06:59 18:59 Intake Total 440 Output Total 600 Balance -160 Weight 252 lb 12.8 oz 255 lb 3.2 oz Intake: Oral 440 Output: Urine 600 Other: Weight Measurement Method Built in [facility] General: Oriented x3, Cooperative, No acute distress HEENT: Atraumatic, PERRLA, EOMI Neck: Supple, No JVD Lungs: Other - diminished but otherwise CTA Cardiovascular: Regular rate, Normal S1, Normal S2, No murmurs Abdomen: Normal bowel sounds, Soft Extremities: No clubbing, No cyanosis, No edema - Results Results: Laboratory Results WBC 3.3 K/mm3 (4.8-10.8) L 02/01/20 06:40 RBC 4.81 M/mm3 (4.70-6.10) 02/01/20 06:40 Hgb 14.7 gm/dL (14.0-18.0) 02/01/20 06:40 Hct 42.8 % (42.0-52.0) 02/01/20 06:40 MCV 88.9 fl (80.0-94.0) 02/01/20 06:40 MCH 30.6 pg (27.0-31.0) 02/01/20 06:40 MCHC 34.4 g/dL (33.0-37.0) 02/01/20 06:40 RDW 13.1 % (11.5-14.5) 02/01/20 06:40 Plt Count 127 K/mm3 (130-400) L 02/01/20 06:40 MPV 8.0 fl (7.40-10.4) 02/01/20 06:40 Absolute Neuts (auto) 2.10 K/uL (1.8-6.8) 02/01/20 06:40 Absolute Lymphs (auto) 0.70 K/uL (1.0-3.4) L 02/01/20 06:40 Absolute Monos (auto) 0.50 K/uL (0.2-0.8) 02/01/20 06:40 Absolute Eos (auto) 0.00 K/uL (0.0-0.4) 02/01/20 06:40 Absolute Basos (auto) 0.00 K/uL (0.0-0.1) 02/01/20 06:40 Neutrophils % 62.0 % (42.0-78.0) 02/01/20 06:40 Lymphocytes % 20.9 % (20.0-50.0) 02/01/20 06:40 Monocytes % 15.6 % (2.0-9.0) H 02/01/20 06:40 Eosinophils % 0.8 % (1.0-5.0) L 02/01/20 06:40 Basophils % 0.7 % (0.0-2.0) 02/01/20 06:40 PTT (SP) 26.1 SECONDS (21.8-31.6) 01/31/20 10:05 D-Dimer, Quantitative < 131.0 ng/ml (131-400) L 02/01/20 06:40 Sodium 137 mmol/L (135-145) 02/01/20 06:40 Potassium 4.0 mmol/L (3.6-5.0) 02/01/20 06:40 Chloride 103 mmol/L (101-111) 02/01/20 06:40 Carbon Dioxide 27 mmol/L (21-31) 02/01/20 06:40 Anion Gap 11.0 (12-18) L 02/01/20 06:40 BUN 16 mg/dL (7-18) 02/01/20 06:40 Creatinine 0.54 mg/dL (0.6-1.3) L 02/01/20 06:40 BUN/Creatinine Ratio 29.6 (10-20) H 02/01/20 06:40 POC Glucose 208 mg/dL (70-105) H 01/31/20 21:00 Random Glucose 180 mg/dL (70-105) H 02/01/20 06:40 Serum Osmolality 279.5 mOsm/L (275-295) 02/01/20 06:40 Calcium 8.0 mg/dL (8.4-10.2) L 02/01/20 06:40 Magnesium 1.7 mg/dL (1.8-2.5) L 02/01/20 06:40 Total Bilirubin 1.0 mg/dL (0.2-1.0) 02/01/20 06:40 AST 17 IU/L (10-42) 02/01/20 06:40 ALT 20 IU/L (10-60) 02/01/20 06:40 Alkaline Phosphatase 57 IU/L (42-121) 02/01/20 06:40 LD Total 115 IU/L (91-180) 01/31/20 10:05 Creatine Kinase 68 IU/L (38-174) 02/01/20 06:40 Troponin I < 0.02 ng/mL (0.01-0.05) 01/31/20 10:05 C-Reactive Protein < 0.8 mg/dL (0-1.0) D 02/01/20 06:40 B-Natriuretic Peptide < 15.0 pg/ml (0-100) 01/31/20 10:05 Serum Total Protein 6.4 gm/dL (6.4-8.2) 02/01/20 06:40 Albumin 3.2 g/dl (3.2-5.5) 02/01/20 06:40 Globulin 3.2 gm/dL (2.3-3.5) 02/01/20 06:40 Albumin/Globulin Ratio 1.0 (1.1-1.9) L 02/01/20 06:40 Group A Strep Rapid Negative (NEGATIVE) 01/31/20 10:18 Assessment/Plan - Problem(s) (1) COVID-19 Plan: Continue remdesevir, dexamethasone, and empiric antibiotics. Will continue bronchial hygiene and albuterol as well as Mucinex. Wean oxygen off as tolerated. (2) Hypertension Plan: Continue home medications (3) Diabetes mellitus type 2 in obese Plan: Continue home medications and sliding scale insulin.
[2020-02-01] MEDS: AZITHROMYCIN IV 500 MG in SODIUM CHLORIDE 0.9% 250ML 250 ML IVPB SCH (17:04)
[2020-02-01] MEDS: ENOXAPARIN SODIUM 40 MG/0.4 ML SYG SUBCU SCH (17:28)
[2020-02-02] MEDS ORDERED: metFORMIN HCL 500 MG TAB ONE ×2 (09:02→15:23)
[2020-02-02] MEDS: INSULIN LISPRO 100 UNITS/ML PEN SUBCU SCH ×4 (09:05→22:46)
[2020-02-02] MEDS: ALBUTEROL INHALER 64 PUFF/8GM INH SCH ×4 (09:13→20:15)
[2020-02-02] MEDS: guaiFENesin ER TAB 600 MG TAB PO SCH ×2 (09:20→20:27)
[2020-02-02] MEDS: DEXAMETHASONE INJ 10 MG/ML VIAL IV SCH (09:21)
[2020-02-02] MEDS: REMDESIVIR 100 MG in SODIUM CHLORIDE 0.9% 250ML 250 ML IVPB SCH (09:21)
[2020-02-02] MEDS: metFORMIN HCL 500 MG TAB PO SCH ×2 (09:21→16:13)
[2020-02-02] MEDS ORDERED: MAGNESIUM SULFATE PREMIX 2GM 2 GM in PREMIX BAG 1 BAG IVPB ONE (10:50)
--- NOTE | 2020-02-02 11:24 | RAD ---
PROCEDURE:XR CHEST 1 VIEW HISTORY:covid-19 COMPARISON: January 31, 2020 FINDINGS: The heart appears unremarkable. There is some minimally coarse interstitial markings seen in both the left and right lungs slightly more pronounced than on the prior exam. There is some mild elevation the right hemidiaphragm. There is no effusion or pneumothorax. There are no acute bony or soft tissue abnormalities. IMPRESSION: Minimally more prominent coarse interstitial markings seen in both left and right lungs may be secondary to poor respiratory effort slight worsening of the patient's pneumonia. Electronically signed by: Floyd Chakraboryt MD 02/02/2020 11:22 AM [facility]
[2020-02-02] MEDS ORDERED: MAGNESIUM SULFATE PREMIX 2GM 50 ML IVPB ONE (11:44)
[2020-02-02] MEDS ORDERED: TEMAZEPAM 15 MG CAP PO PRN (14:42)
[2020-02-02] MEDS ORDERED: ENOXAPARIN SODIUM 40 MG/0.4 ML SYG SUBCU ONE (15:23)
[2020-02-02] MEDS: ENOXAPARIN SODIUM 40 MG/0.4 ML SYG SUBCU SCH (16:13)
[2020-02-02] MEDS: AZITHROMYCIN IV 500 MG in SODIUM CHLORIDE 0.9% 250ML 250 ML IVPB SCH (16:13)
--- NOTE | 2020-02-02 16:25 | PN ---
SUPERVISING PHYSICIAN: Juan F Henriquez MD DATE: 02/02/20 SUBJECTIVE: The patient is sitting up in bed. His oxygen is off for the first time since he has been admitted. We discussed his ambulating without oxygen as well as worsening of his chest x-ray. He denies shortness of breath but he does say when he gets up to go to the bathroom he becomes quite short of breath. He denies chest pain, nausea or vomiting, He does have some difficulty sleeping at night. OBJECTIVE: VITAL SIGNS: Temperature 98, heart rate 85, blood pressure 115/63, respiratory rate 18, oxygen saturation 92% on room air. CHEST: Essentially clear to auscultation but diminished at the bases. CARDIAC: Regular rate and rhythm. NEUROLOGIC: The patient is awake, alert, and oriented x3. LABORATORY: WBC 3,800 with hemoglobin 15.5, hematocrit 45.2. D-dimer is 187. Electrolytes are basically within normal limits with the exception of his magnesium is 1.7. C-reactive protein is 1. Chest x-ray shows minimally more prominent coarse interstitial markings seen in both left and right lungs, may be secondary to poor respiratory effort, slight worsening of the patient's pneumonia. All other labs and films have been reviewed via the EMR. ASSESSMENT: 1. COVID-19 pneumonitis. 2. Hypertension. 3. Diabetes mellitus type 2. PLAN: We will continue present supportive care. I have ordered an ambulation study if he needs oxygen on discharge, I have repeated his labs and chest x-ray for in the morning. Hopefully, he can be discharged tomorrow. I have given him a magnesium supplementation and Restoril for sleep tonight. #[id number] [facility]
[2020-02-03] MEDS ORDERED: PANTOPRAZOLE SODIUM IV 40 MG VIAL IV SCH (06:30)
--- NOTE | 2020-02-03 08:02 | RAD ---
EXAM DESCRIPTION: Chest,1 View CLINICAL HISTORY: 74 years Male, covid COMPARISON: February 02, 2020 TECHNIQUE: X-ray 1 view chest upright portable FINDINGS: Moderate cardiomegaly with central vascular congestion. No consolidation. Suspect small bilateral effusions. IMPRESSION: CHF more prominent than prior Electronically signed by: Yasir Gonzalez MD 02/03/2020 8:00 AM [employer]
[2020-02-03] MEDS: ALBUTEROL INHALER 64 PUFF/8GM INH SCH ×2 (08:30→12:45)
[2020-02-03] MEDS: INSULIN LISPRO 100 UNITS/ML PEN SUBCU SCH ×2 (08:48→13:01)
[2020-02-03] MEDS ORDERED: BIFIDOBACTERIUM INFANTIS 4 MG CAP PO SCH (09:00)
[2020-02-03 09:08] VITALS: BP 131/82; TEMP 97.1; O2SAT 96
[2020-02-03] MEDS: guaiFENesin ER TAB 600 MG TAB PO SCH (09:58)
[2020-02-03] MEDS: DEXAMETHASONE INJ 10 MG/ML VIAL IV SCH (09:58)
[2020-02-03] MEDS: metFORMIN HCL 500 MG TAB PO SCH (09:58)
[2020-02-03] MEDS: REMDESIVIR 100 MG in SODIUM CHLORIDE 0.9% 250ML 250 ML IVPB SCH (09:59)
[2020-02-03] MEDS ORDERED: FUROSEMIDE INJ 40 MG/4 ML VIAL IV ONE (10:23)
--- NOTE | 2020-02-03 21:26 | DS ---
SUPERVISING PHYSICIAN: Nas Almeida M.D. DISCHARGE DIAGNOSIS: 1. COVID-19 pneumonitis. 2. Hypertension. 3. Diabetes mellitus type 2. HISTORY OF PRESENT ILLNESS: This is a 74 year-old male patient who has a medical history of diabetes that came to the Emergency Room after having 2-days sore throat, continued malaise and body aches. He also had some shortness of breath. He was seen at the [facility] and COVID tested. He was positive. He was sent to the Emergency Room due to low 02 saturations. In the Emergency Room, his workup revealed vital signs of oxygen saturations of 92% on room air which dropped to the high 80s at times. He was placed on oxygen. Additional lab work was done that showed a white count of 3.6, stable hemoglobin, D-dimer less than 131. CRP 1.2, glucose elevated at 214, total bilirubin 1.1. Troponin was negative. Chest x-ray was done and showed some pulmonary vascular congestion but not the traditional patchy infiltrates normally seen on COVID-19 patients. He was referred for admission due to hypoxia. HOSPITAL COURSE: The patient was admitted for COVID pneumonitis and continued on the routine COVID medications of Dexamethasone, Remdesivir and azithromycin. He was held on Ceftriaxone due to his Keflex allergy. He was given Albuterol inhaler both p.r.n. and scheduled. He was on Lovenox for DVT prophylaxis as well as Mucinex and Align. He slowly but progressively improved. His vital signs continued to stabilize and he was weaned off of the oxygen. Yesterday his chest x-ray had more prominent coarse interstitial markings that had worsened. He continued to need oxygen on occasion. He was weaned completely off of the oxygen and this morning he will be discharged home in stable condition. Chest x-ray this morning showed some increased pulmonary vascularity and he was given a dose of Lasix. An echocardiogram was ordered but was unavailable to be done today. He will be sent home on 10 days of Lasix in addition to his COVID medications. LABORATORY: WBCs were low but were stable at 3.6 and 3.4. Hemoglobin and hematocrit stable at 14.3 and 41.4. D-dimer was within normal limits. Electrolytes are basically within normal limits with the exception of his calcium was slightly low at 8.3. He did have a low magnesium that required supplementation and is now 1.8. Liver enzymes were within normal limits. Bilirubin did normalize to 1. C reactive protein was 1.2 and is now less than 0.8. Group A Strep was negative. Final chest x-ray showed congestive heart failure more prominent than prior, increased with moderate cardiomegaly and central vascular congestion. DISCHARGE PLAN: The patient will be discharged home in stable condition. He has a followup appointment with Dr. Almeida on February 10 at 9:45. It will be via Telehealth. In addition to his routine home medications, he is to continue on COVID medications with his Dexamethasone, Eliquis 2.5 b.i.d. times 15 days, azithromycin as well as the addition of Furosemide. He is also to continue with his Align, Mucinex and Albuterol inhaler. He is to resume his previous diet and increase his activity as tolerated. He is to return to the hospital or followup with Dr. Almeida for any problems or complications. DISCHARGE MEDICATIONS: 1. Metformin. 2. Ozempic. 3. Align. 4. Albuterol inhaler. 5. Dexamethasone. 6. Eliquis. 7. Azithromycin. 8. Furosemide. #[id number] [facility]
[2020-02-04] MEDS ORDERED: FUROSEMIDE INJ 20 MG/2 ML VIAL IV SCH (09:00)
[2020-02-07] MEDS ORDERED: NON-FORMULARY MEDICATION 1 EA MIS (Semaglutide [Ozempic] 2 MG) SC SCH (09:00)
== END 2020-02-03 12:45 | disposition home or self-care (01) | DRG 177 ==
LOC: ER 09:27 → OBSVTOIN 14:54 → MS 14:54
PROVIDERS: ADMIT Nurse Practitioner; ATTEND Nurse Practitioner Acute Care
PROC: XW033E5 Introduction of Remdesivir Anti-infective into Peripheral Vein, Percutaneous Approach, New Technology Group 5 (ICD-10-PCS; principal; 2020-01-31)
DX: U07.1 COVID-19 (principal); J12.89 Other viral pneumonia; R09.02 Hypoxemia; I10 Essential (primary) hypertension; I25.10 Atherosclerotic heart disease of native coronary artery without angina pectoris; E11.9 Type 2 diabetes mellitus without complications; E66.9 Obesity, unspecified; Z88.1 Allergy status to other antibiotic agents; Z95.5 Presence of coronary angioplasty implant and graft; Z79.84 Long term (current) use of oral hypoglycemic drugs; Z87.891 Personal history of nicotine dependence; Z79.899 Other long term (current) drug therapy; Z68.37 Body mass index [BMI] 37.0-37.9, adult

== ENCOUNTER 2020-02-09 06:10 | Inpatient (IN) | payer MEDICARE ==
[2020-02-09] MEDS ORDERED: SODIUM CHLORIDE 0.9% 1000ML 1,000 ML IVS PRN (06:27)
--- NOTE | 2020-02-09 06:56 | ED.PDOC ---
History of Present Illness - General Source: patient - History of Present Illness Comments: PATIENT PRESENTS W/ COVID 19, ON HOME O2, NOW WITH DROPPING 02 SAT, ONSET OF SYMPTOM SON 01/29/20, ADMITTED TO THIS HOSPITAL ON 01/30 AND DISCHARGED ON 02/02, DID RECEIVE REMDESIVIR WHILE IN THE HOSPITAL. PMHX OF DM, BMI OF 35, NO OTHER HEALTH PROBLEMS. 02 SAT OF 88% ON NC AT PRESENTATION TO ER. NOW ON NRB AT 15 AND 02 SAT OF 95%. <Soren Best - Last Filed: 02/09/20 06:59> <Sohan Way - Last Filed: 02/09/20 11:46> - General Chief Complaint: Respiratory Problem Stated Complaint: low sats, weakness, COVID+ Time Seen by Provider: 02/09/20 06:38 - History of Present Illness Allergies/Adverse Reactions: Allergies Cephalexin [From Keflex] Allergy (Verified 01/31/20 10:03) Rash Home Medications: Ambulatory Orders Metformin HCl [Metformin Hydrochloride] 500 mg PO BID 12/27/13 Semaglutide [Ozempic] 2 mg SC WKLY 01/31/20 Albuterol Inhaler [Ventolin Hfa Inhaler] 2 puff INH RTQID inh 02/03/20 Apixaban [Eliquis] 2.5 mg PO BID #30 tab 02/03/20 Azithromycin Tab [Zithromax Tab] 250 mg PO QD #4 tab 02/03/20 Bifidobacterium Infantis [Align] 4 mg PO BID cap 02/03/20 Dexamethasone Tab [Decadron Tab] 4 mg PO DAILY #6 tab 02/03/20 Furosemide [Lasix] 20 mg PO DAILY #10 tab 02/03/20 Review of Systems - Review of Systems Constitutional: States: no symptoms reported EENTM: States: see HPI Respiratory: States: see HPI, short of breath Cardiology: States: chest pain Gastrointestinal/Abdominal: States: nausea Genitourinary: States: no symptoms reported Musculoskeletal: States: muscle pain, muscle stiffness Skin: States: no symptoms reported <Soren Best - Last Filed: 02/09/20 06:59> Past Medical History (General) - Patient Medical History Hx Seizures: No Hx Stroke: No Hx Dementia: No Hx Asthma: No Hx of COPD: No Hx Cardiac Disorders: Yes - 2 stents Hx Congestive Heart Failure: No Hx Pacemaker: No Hx Hypertension: Yes Hx Thyroid Disease: No Hx Diabetes: Yes Hx Gastroesophageal Reflux: No Hx Renal Disease: No Hx Cancer: Yes - skin carcinoma on nose Hx of HIV: No Hx Hepatitis C: No Hx MRSA: No - Vaccination History Hx Tetanus, Diphtheria Vaccination: No Hx Influenza Vaccination: Yes Hx Pneumococcal Vaccination: Yes - Social History Hx Tobacco Use: Yes - Quit smoking cigs 2009; Does vape Hx Chewing Tobacco Use: No Hx Alcohol Use: No Hx Substance Use: No Hx Substance Use Treatment: No Hx Depression: No Hx Physical Abuse: No Hx Emotional Abuse: No Hx Suspected Abuse: No - Female History Patient : No <Sroen Best - Last Filed: 02/09/20 06:59> Family Medical History - Family History Father Living Status: Hx Family Diabetes: Yes Hx Family Cancer: Yes Hx Family;Other: Father: Lung cancer Mother Living Status: Hx Family Cancer: Yes Hx Family;Other: Mother: Breast Cancer <PulaskiSoren Schererne - Last Filed: 02/09/20 06:59> Physical Exam - Physical Exam General Appearance: Alert, Frail, Ill Appearing, Unkempt ENT Exam: normal ENT inspection, hearing grossly normal, pharynx normal Neck: non-tender, full range of motion, supple, normal inspection Respiratory: chest non-tender, lungs clear, rales - DIFFUSE Cardiovascular/Chest: normal peripheral pulses, regular rate, rhythm, no edema, no gallop Gastrointestinal/Abdominal: normal bowel sounds, non tender, soft, no organomegaly Extremity: normal range of motion, non-tender, normal inspection, no pedal edema, no calf tenderness Neurologic: alert, normal mood/affect, oriented x 3 Skin Exam: normal color, warm/dry, pallor Lymphatic: no adenopathy <PulaskiSoren Talavera - Last Filed: 02/09/20 06:59> Progress - Progress Progress: 02/09/20 11:41 The patient is a 74-year-old male presented emergency room secondary to worsening shortness of breath. The patient has known coronavirus since the of this month. He was in the hospital for 3 to 4 days here and was released with oral azithromycin, dexamethasone and oxygen by nasal cannula. Apparently the patient did well for 4 days or so and then started having more problems. The patient was significantly hypoxic upon arrival here even with supplemental oxygen by nasal cannula. He is feeling better on the nonrebreather and oxygen saturations are holding steady in the low 90s. We are doing a brief trial of BiPAP on the patient as he is retaining a mild amount of CO2. The patient has largely been an active over the last week as well. He has been on Eliquis and he will need to be continued on some form of a blood thinner. No evidence of bleeding at this point. The patient was also on low-dose Lasix over the weekend did appear fairly dehydrated upon arrival here. For this reason he did receive 1 L bolus upon arrival. This should also help with the lactic acidosis to some extent. Blood pressure did improve as well with a liter of IV fluids. The patient has been started on the Zosyn, azithromycin, remdesivir, Decadron, duo nebs and now a trial of BiPAP. The patient does appear to do much better sitting up. This may be an important thing for him over the next few days. The patient does appear to be out of the window for the recommended usage of the bamlanivimab. I did restart a second course of the remdesivir. It is unclear as far as I can tell whether this will have significant benefit for him however. Patient is in critical condition requiring high flow oxygen. He is much more comfortable at this point than upon arrival. He did fail a trial of the high flow nasal cannula. Admit for continued care. If patient deteriorates further than he may require transfer for higher level of care though no outside ICU coronavirus beds are currently available in the surrounding areas. [phone] Critical care time spent is 40 minutes. - Results/Orders Results/Orders: CTA of the chest shows no evidence of definitive pulmonary embolus. There are diffuse infiltrates with consolidation consistent with possible coronavirus pneumonia or other superimposed pneumonia. EKG shows normal sinus rhythm with frequent PVCs at 96 bpm. Normal axis. Atypical R wave progression but not definitive of infarction. Normal QT interval. No obvious ST segment or T wave changes indicative of acute ischemia. Laboratory Results - last 24 hr 02/09/20 02/09/20 02/09/20 05:30 06:27 06:30 WBC 5.0 RBC 5.03 Hgb 15.6 Hct 45.0 MCV 89.4 MCH 31.0 MCHC 34.6 RDW 13.0 Plt Count 153 MPV 7.4 Absolute Neuts (auto) 4.30 Absolute Lymphs (auto) 0.20 L Absolute Monos (auto) 0.40 Absolute Eos (auto) 0.00 Absolute Basos (auto) 0.00 Neutrophils % 86.7 H Lymphocytes % 4.9 L Monocytes % 8.1 Eosinophils % 0.1 L Basophils % 0.2 PT INR PTT (SP) D-Dimer, Quantitative pCO2 51 H pO2 82 L HCO3 33.6 ABG pH 7.423 ABG O2 Saturation 95.1 ABG Base Excess 7.4 ABG Deoxyhemoglobin 4.8 Oxyhemoglobin % 92.9 L Carboxyhemoglobin % 0.8 Methemoglobin % Sat 1.5 Calc Total Hemoglobin 15.4 Sodium Potassium Chloride Carbon Dioxide Anion Gap BUN Creatinine BUN/Creatinine Ratio Random Glucose Serum Osmolality Lactic Acid Calcium Total Bilirubin AST ALT Alkaline Phosphatase B-Natriuretic Peptide 39.3 Serum Total Protein Albumin Globulin Albumin/Globulin Ratio 02/09/20 02/09/20 02/09/20 06:30 06:30 06:30 WBC RBC Hgb Hct MCV MCH MCHC RDW Plt Count MPV Absolute Neuts (auto) Absolute Lymphs (auto) Absolute Monos (auto) Absolute Eos (auto) Absolute Basos (auto) Neutrophils % Lymphocytes % Monocytes % Eosinophils % Basophils % PT 10.1 INR 1.02 PTT (SP) 29.7 D-Dimer, Quantitative 223.0 pCO2 pO2 HCO3 ABG pH ABG O2 Saturation ABG Base Excess ABG Deoxyhemoglobin Oxyhemoglobin % Carboxyhemoglobin % Methemoglobin % Sat Calc Total Hemoglobin Sodium 136 Potassium 4.2 Chloride 95 L Carbon Dioxide 30 Anion Gap 15.2 BUN 27 H Creatinine 0.79 BUN/Creatinine Ratio 34.2 H Random Glucose 325 H Serum Osmolality 289.7 Lactic Acid 2.4 H* Calcium 9.1 Total Bilirubin 1.1 H AST 24 ALT 20 Alkaline Phosphatase 64 B-Natriuretic Peptide Serum Total Protein 7.4 Albumin 3.3 Globulin 4.1 H Albumin/Globulin Ratio 0.8 L <Sohan Way - Last Filed: 02/09/20 11:46> Departure <Soren Best - Last Filed: 02/09/20 06:59> <Sohan Way - Last Filed: 02/09/20 11:46> - Departure Clinical Impression: Pneumonia due to COVID-19 virus, Respiratory distress Disposition: Admit Patient Condition: Poor Departure Forms: ED Discharge - Pt. Copy, Patient Portal Self Enrollment Referrals: JESSE HIGGINS MD [Primary Care Provider] - 1-2 Weeks Home Medications: Ambulatory Orders Metformin HCl [Metformin Hydrochloride] 500 mg PO BID 12/27/13 Semaglutide [Ozempic] 2 mg SC WKLY 01/31/20 Albuterol Inhaler [Ventolin Hfa Inhaler] 2 puff INH RTQID inh 02/03/20 Apixaban [Eliquis] 2.5 mg PO BID #30 tab 02/03/20 Azithromycin Tab [Zithromax Tab] 250 mg PO QD #4 tab 02/03/20 Bifidobacterium Infantis [Align] 4 mg PO BID cap 02/03/20 Dexamethasone Tab [Decadron Tab] 4 mg PO DAILY #6 tab 02/03/20 Furosemide [Lasix] 20 mg PO DAILY #10 tab 02/03/20 Decision To Admit - Decistion To Admit Decision to Admit Reason: Medical Nature Decision to Admit Date: 02/09/20 Decision to Admit Time: 11:[address] <[address] - Last Filed: 02/09/20 11:46>
[2020-02-09] MEDS ORDERED: IPRATROPIUM/ALBUTEROL 3 ML VIAL NEB ONE (07:10)
[2020-02-09] MEDS ORDERED: DEXAMETHASONE INJ 4 MG/ML VIAL IV ONE (07:10)
[2020-02-09] MEDS ORDERED: REMDESIVIR 200 MG in SODIUM CHLORIDE 0.9% 250ML 250 ML IVPB ONE (07:10)
[2020-02-09] MEDS ORDERED: PIPERACILLIN/TAZOBACTAM 3.375 GM in SODIUM CHLORIDE 0.9% 100ML 100 ML IVPB ONE (07:11)
--- NOTE | 2020-02-09 08:13 | RAD ---
EXAM: Single view chest. INDICATION: Shortness of breath. COMPARISON: Chest x-ray: 02/03/2020. FINDINGS: Mild worsening pulmonary vascular congestion and pulmonary interstitial and airspace opacities. Heart is normal in size. Small pleural effusions may be present. No pneumothorax. Postsurgical changes to the left clavicle. IMPRESSION: Mild worsening pulmonary vascular congestion with worsening pulmonary opacities. This likely represents worsening CHF exacerbation. Superimposed pneumonia may be present. Electronically signed by: Phani Bernard MD 02/09/2020 8:12 AM [facility]
--- NOTE | 2020-02-09 08:47 | CT ---
EXAM: CT Angiography Chest With Intravenous Contrast CLINICAL HISTORY: covid 12 days, worsening hypoxia TECHNIQUE: Axial computed tomographic angiography images of the chest with intravenous contrast. Sagittal and coronal reformatted images were created and reviewed. This CT exam was performed using one or more of the following dose reduction techniques: automated exposure control, adjustment of the mA and/or kV according to patient size, and/or use of iterative reconstruction technique. MIP reconstructed images were created and reviewed. COMPARISON: 01/23/2019 FINDINGS: Limitations: Motion artifact and suboptimal bolus timing limits assessment of the distal pulmonary arterial branches. Pulmonary arteries: See above. Aorta: No acute change noted. No thoracic aortic aneurysm. Lungs: No pulmonary mass noted. Now present is moderate groundglass and superimposed consolidative lung disease throughout all lobes of both lungs predominantly peripherally distributed. Pleural space: No abnormality noted. No significant effusion. No pneumothorax. Heart: Cardiomegaly. No significant pericardial effusion. No evidence of RV dysfunction. Mediastinum: Normal mediastinal contour Bones/joints: No acute fracture. No dislocation. Soft tissues: No abnormality noted. Lymph nodes: Precarinal lymph node has enlarged in the interval to 1.4 cm short axis dimension. Few new shotty precarinal lymph nodes present likely reactive. Stomach and bowel: Stable small gastric diverticulum. IMPRESSION: 1. Limited pulmonary arterial assessment. No pulmonary embolus noted. 2. Diffuse groundglass and consolidative lung disease consistent in appearance and distribution with covid pneumonia. Electronically signed by: Nirali Valle MD 02/09/2020 8:46 AM [facility]
[2020-02-09] MEDS ORDERED: AZITHROMYCIN IV 500 MG in SODIUM CHLORIDE 0.9% 250ML 250 ML IVPB ONE (10:09)
--- NOTE | 2020-02-09 12:26 | HP ---
SUPERVISING PHYSICIAN: Nas Almeida MD CHIEF COMPLAINT: Worsening shortness of breath. HISTORY OF PRESENT ILLNESS: Mr. Santoyo is a 74 year-old male patient who presented to the Emergency Room with low 02 saturations. He was diagnosed with Covid initially on 01/31/20. He was actually admitted to the hospital for treatment of Covid and was treated with Remdesivir, azithromycin, Rocephin, Decadron, and was discharged home on 02/02/90. He presented to the Emergency Room this morning initially short of breath and requiring high flow nonrebreather just to maintain 02 saturations above 92% and actually had to be transitioned to BiPAP while in the Emergency Room. Plans were made to try to transfer the patient to high-level care, however, there are no beds available and the patient is showing to be fairly stable at this point. Therefore, he is going to be admitted for further management of Covid pneumonitis and pneumonia, having failed to respond to previous treatment plan. PAST MEDICAL HISTORY: 1. Covid pneumonitis with hospitalization on 01/31/20. 2. Diabetes mellitus type 2. 3. Cardiovascular disease. 4, Skin cancer. 5. Hypertension. PAST SURGICAL HISTORY: 1. Gallbladder. 2. Tonsillectomy. 3. Chondroplasty of the knee. 4. PTCA with stents x2, CURRENT MEDICATIONS: 1. Osmetic 2 mg subcu weekly. 2. Metformin 500 mg b.i.d. 3. Ozempc 2 mg subcutaneous weekly. 4. Metformin 500 mg b.i.d. 5. Lasix 20 mg daily. 6. Decadron 4 mg daily. 7. Align 4 mg b.i.d. 8. Azithromycin 250 mg daily. 9. Eliquis 2.5 mg b.i.d. 10. Albuterol inhalers 2 puffs as needed q.i.d. ALLERGIES: CEPHALEXIN FAMILY HISTORY: Noncontributory to current illness. SOCIAL HISTORY: Patient is a nondrinker, nonsmoker, does not use illicit drugs. He does have a history of smoking tobacco but quit in 2009 but does currently vape. REVIEW OF SYSTEMS: CONSTITUTIONAL: Positive for ongoing fevers, chills, fatigue, no unintentional weight loss or weight gain. HEENT: Denies headaches. vision changes, sore throat. nasal congestion. CHEST: Positive for coughing, increasing shortness of breath, no pleuritic chest pain as noted in history of present illness. HEART: Denies chest pain, palpitations, or syncopal episodes. ABDOMEN: Denies nausea, vomiting, diarrhea or constipation or abdominal pains. GENITOURINARY: Denies dysuria, hematuria or polyuria. MUSCULOSKELETAL: Denies joint pain, swelling or muscle cramps. SKIN: Denies lesions, rashes, moles or unexplained changes. NEUROLOGIC: No reports syncope, paresthesias, ataxia, seizures, HEMATOLOGICAL: Denies unexplained bleeding, bruising or transfusion reactions. PHYSICAL EXAMINATION: VITAL SIGNS: Temperature 97.8, pulse 78, blood pressure 131/82, respirations 26, oxygen saturation 91% on nasal cannula at rest. Initially requiring nonrebreather to maintain just 95% on 15 liters and then transitioned ti BiPAP maintaining 97%. GENERAL: The patient looks to be resting comfortably and in no acute distress. He is on BiPAP and shows no signs of respiratory compromise at this point. He is alert. HEENT: Tympanic membranes are clear bilaterally. Oropharynx is pink, moist without any lesions. NECK: Supple, non-tender, full range of motion. CHEST: Lung sounds diminished throughout. No obvious rhonchi, rales, or wheezes. CARDIOVASCULAR: Regular rate and rhythm without appreciable murmurs, rubs, or gallops. ABDOMEN: Soft, non-tender, positive bowel sounds. EXTREMITIES: Without edema. NEUROLOGIC: He is alert and oriented x 3. LABORATORY: White count 5,000, hemoglobin 15.6, hematocrit 45.0, platelet count 153,000. Differential does show a left shift. Coagulation studies showed normal D-dimer. PT/PTT were normal. Blood gas analysis in the Emergency Room this morning on a nonrebreather showed 95% 02 saturations, pH 7.42 with P02 of 82, PC02 of 51, bicarb 33.6. Chemistries showing normal electrolytes with creatinine 0.79. Lactic acid was slightly elevated at 2.4. Calcium 9.1. Bilirubin only slightly elevated 1.1, otherwise AST and ALT were all normal. C- reactive protein was pending. MICROBIOLOGY: Blood cultures were collected. RADIOLOGY: CT of the chest with contrast per radiology interpretation showed normal pulmonary arterial assessment, no pulmonary embolus was noted. There was diffuse groundglass and consolidative lung disease consistent with Covid pneumonia. ASSESSMENT: 1. Covid-19 pneumonitis with developing pneumonia failing both inpatient and outpatient treatment plan, currently requiring BiPAP. 2. Hypertension. 3. Diabetes mellitus type 2. PLAN: The patient is going to be admitted for treatment of Covid pneumonia. He was started on Decadron. We will go ahead and start him on azithromycin and given he has been through one round of treatment already, we will go ahead and re-dose him with Remdesivir and start him on Levaquin given that it looks like it's more pneumonia than anything at this point. He will be on aggressive pulmonary hygiene with albuterol inhaler treatments. He will have sliding scale per protocol. Will give him Align and Protonix. I did restart him on Decadron. I anticipate length of stay to be at least 2 to 3 days with close monitoring of his respiratory effort as he is requiring BiPAP at this point but we will work to titrate that down as possible. We will recheck labs and x-rays as per protocol and hopefully be able to transition the patient to outpatient management in the next couple of days. Until then, we will continue to monitor and treat as needed. [id number]
[2020-02-09] MEDS ORDERED: SODIUM CHLORIDE 0.9% (FLUSH) 10 ML SYG IV PRN (12:55)
[2020-02-09] MEDS ORDERED: MAGNESIUM HYDROXIDE 30 ML UD PO PRN (12:55)
[2020-02-09] MEDS ORDERED: DEXTROSE 50% 25 GM/50 ML SYG IV PRN (12:55)
[2020-02-09] MEDS ORDERED: ONDANSETRON INJ 4 MG/2 ML VIAL IV PRN (12:55)
[2020-02-09] MEDS ORDERED: GLUCAGON INJ 1 MG VIAL SUBCU PRN (12:55)
[2020-02-09] MEDS ORDERED: IV SET AND CAP CHANGE INJ INJ SCH (13:00)
[2020-02-09] MEDS ORDERED: ALBUTEROL INHALER 64 PUFF/8GM INH PRN (13:04)
[2020-02-09] MEDS: levoFLOXacin 500MG IV 500 MG in PREMIX BAG 1 BAG IVPB SCH (14:15)
[2020-02-09] MEDS ORDERED: levoFLOXacin 500MG IV 100 ML IVPB ONE (14:15)
[2020-02-09] MEDS: ALBUTEROL INHALER 64 PUFF/8GM INH SCH ×2 (16:30→20:50)
[2020-02-09] MEDS: INSULIN LISPRO 100 UNITS/ML PEN SUBCU SCH ×2 (17:00→21:00)
[2020-02-09] MEDS ORDERED: metFORMIN HCL 500 MG TAB ONE (19:50)
[2020-02-09] MEDS: APIXABAN 5 MG TAB PO SCH (20:59)
[2020-02-09] MEDS ORDERED: ENOXAPARIN SODIUM 40 MG/0.4 ML SYG SUBCU SCH (21:00)
[2020-02-09] MEDS: NON-FORMULARY MEDICATION 1 EA MIS (Metformin Hcl [Metformin Hydrochloride] 1,000 MG) PO SCH (21:00)
[2020-02-10] MEDS ORDERED: ALPRAZolam 0.25 MG TAB PO PRN (00:20)
[2020-02-10] MEDS ORDERED: ACETAMINOPHEN 325 MG TAB ONE (05:18)
[2020-02-10] MEDS: ACETAMINOPHEN 325 MG TAB PO PRN ×2 (05:26→18:22)
[2020-02-10] MEDS ORDERED: PANTOPRAZOLE SODIUM IV 40 MG VIAL IV SCH (06:30)
--- NOTE | 2020-02-10 07:07 | RAD ---
EXAM: Chest,1 View HISTORY: COVID PNA COMPARISON: Chest 1 View AP 02/09/2020 TECHNIQUE: Chest 1 View AP FINDINGS: Moderate decreased inspiration (decreased lung volumes) makes evaluation more difficult and may accentuate heart size and pulmonary vascularity. Cardiac silhouette stable and upper limits normal size. No pneumothorax. Worsening bilateral lung opacities. Moderate hazy bilateral lung opacities. Left clavicle ORIF hardware reidentified. IMPRESSION: Worsening bilateral lung opacities. Moderate hazy bilateral lung opacities. Electronically signed by: Floyd Reyes MD 02/10/2020 7:05 AM [facility]
[2020-02-10] MEDS: ALBUTEROL INHALER 64 PUFF/8GM INH SCH ×4 (07:35→20:00)
[2020-02-10] MEDS ORDERED: metFORMIN HCL 500 MG TAB ONE (07:41)
[2020-02-10] MEDS ORDERED: FUROSEMIDE 40 MG TAB ONE (07:41)
[2020-02-10] MEDS ORDERED: REMDESIVIR IV 100 MG VIAL ONE (07:42)
[2020-02-10] MEDS ORDERED: SODIUM CHLORIDE 0.9% 250ML 250 ML ONE (07:43)
[2020-02-10] MEDS ORDERED: SODIUM CHLORIDE 0.9% (FLUSH) 10 ML SYG ONE (07:43)
[2020-02-10] MEDS: NON-FORMULARY MEDICATION 1 EA MIS (Metformin Hcl [Metformin Hydrochloride] 1,000 MG) PO SCH (08:27)
[2020-02-10] MEDS: INSULIN LISPRO 100 UNITS/ML PEN SUBCU SCH ×3 (08:36→17:16)
[2020-02-10] MEDS ORDERED: DEXAMETHASONE INJ 10 MG/ML VIAL IV SCH (09:00)
[2020-02-10] MEDS ORDERED: NON-FORMULARY MEDICATION 1 EA MIS (Furosemide [Lasix] 20 MG) PO SCH (09:00)
[2020-02-10] MEDS ORDERED: BIFIDOBACTERIUM INFANTIS 4 MG CAP PO SCH (09:00)
[2020-02-10] MEDS ORDERED: REMDESIVIR 100 MG in SODIUM CHLORIDE 0.9% 250ML 250 ML IVPB SCH (09:00)
[2020-02-10] MEDS: APIXABAN 5 MG TAB PO SCH (09:03)
[2020-02-10] MEDS ORDERED: AZITHROMYCIN IV 500 MG in SODIUM CHLORIDE 0.9% 250ML 250 ML IVPB SCH (12:00)
[2020-02-10] MEDS: ALPRAZolam 0.25 MG TAB PO SCH (12:35)
[2020-02-10] MEDS: levoFLOXacin 500MG IV 500 MG in PREMIX BAG 1 BAG IVPB SCH (13:58)
--- NOTE | 2020-02-10 15:30 | PN ---
SUPERVISING PHYSICIAN: Kenn Alarcon MD DATE: 02/10/20 SUBJECTIVE: The patient seems to be doing okay on BiPAP although he is only maintaining 92% at rest at 70% FIO2. He has not been in any distress. He has had to have a little Ativan for some mild anxiety, but essentially will not leave his BiPAP alone at times. He has been running a low grade temperature, T-max of 100.2. OBJECTIVE: VITAL SIGNS: T-max 100.2, pulse 98, blood pressure 120/76, respirations 23, saturation 92% on BiPAP at rest at 70% FIO2. GENERAL: The patient is resting comfortably, does not appear to be in any distress. He does not show any compromise in his respiratory efforts. CHEST: Lung sounds significantly diminished throughout. I do not hear any rhonchi or wheezing. HEART: Regular rate and rhythm. ABDOMEN: Soft, nontender. Positive bowel sounds. EXTREMITIES: No edema. NEUROLOGIC: Alert and oriented times three. LABORATORY: White count remains normal at 5,000. Differential does show a left shift. Coagulation studies show D-dimer up to 876. Blood gas analysis yesterday actually showed PO2 82, PCO2 51. Today's chemistries show normal anion gap as well as normal carbon dioxide, so he seems to be doing okay. Creatinine 0.5. Blood sugars range between 194 and 294. Liver functions within normal limits. C-reactive protein 16.5. Urinalysis was without any signs of infection, just 100 protein, 500 glucose. MICROBIOLOGY: Sputum culture pending. RADIOLOGY: Chest x-ray this morning per radiologic interpretation shows worsened bilateral lung opacities with moderate hazy bilateral lung opacities. ASSESSMENT: 1. COVID-19 pneumonitis with developing pneumonia having failed outpatient treatment plan, now requiring noninvasive ventilatory support on BiPAP. 2. Hypertension. 3. Diabetes mellitus, type 2. PLAN: We will continue treatment with COVID pneumonia guidelines . He is on coverage with azithromycin as well as Levaquin. He is on Remdesivir, Decadron, Lasix, Eliquis, albuterol, Protonix, Align. We will continue to try to increase his bronchial toiletry, encourage self-proning if possible. At this point, he seems to be doing okay. We will recheck labs in the morning as well as repeat x-ray. I do not anticipate we will be able to transition him very fast to outpatient management at least until we can transition him off BiPAP which is probably going to be a struggle at this point. He is again remaining fairly stable on BiPAP. As long as he is doing that, we will continue to work to get his oxygenation improved as much as possible without intubation at this point. I did try to transfer him again yesterday, but there were well over 30 hospitals that turned us down. Until the patient can transition to outpatient management, we will continue to monitor and treat as needed. [facility][id number] [facility]
[2020-02-10] MEDS ORDERED: metFORMIN HCL 500 MG TAB PO SCH (17:00)
[2020-02-10] MEDS ORDERED: IPRATROPIUM/ALBUTEROL 3 ML VIAL NEB ONE (18:24)
[2020-02-10] MEDS ORDERED: BUDESONIDE NEBS 0.5 MG/2 ML INH NEB ONE (18:25)
--- NOTE | 2020-02-10 19:47 | RAD ---
EXAM DESCRIPTION: XR Chest,1 View CLINICAL HISTORY: COVID TECHNIQUE: Single frontal view of the chest is submitted. COMPARISON: 02/10/2020 at 6:58 AM FINDINGS: Heart: The cardiothoracic silhouette is enlarged, stable, in part accentuated by portable technique and degree of inspiration. Lungs: Patchy multifocal opacities bilaterally without significant interval change in overall lung aeration. Mediastinum: Thoracic aortic atherosclerosis. Pleura: No appreciable effusion. No pneumothorax. Bones: Prior left clavicle plate and screw fixation. Upper abdomen: Unremarkable IMPRESSION: Patchy multifocal infiltrates bilaterally without significant interval change. Electronically signed by: Srinath Huggins MD 02/10/2020 7:46 PM [facility]
[2020-02-10] MEDS ORDERED: IPRATROPIUM/ALBUTEROL 3 ML VIAL NEB SCH (20:00)
[2020-02-10] MEDS ORDERED: BUDESONIDE NEBS 0.5 MG/2 ML INH NEB SCH (20:00)
[2020-02-10] MEDS ORDERED: SODIUM CHLORIDE 0.9% 500ML 500 ML ONE (21:13)
[2020-02-10] MEDS ORDERED: SUCCINYLCHOLINE CHLORIDE 200 MG/10 ML VIAL ONE (21:20)
--- NOTE | 2020-02-10 22:11 | RAD ---
EXAM DESCRIPTION: XR Chest,1 View CLINICAL HISTORY: verify placement of ETT TECHNIQUE: Single frontal view of the chest is submitted. COMPARISON: 02/10/2020 at 7:18 PM FINDINGS: Heart: The cardiothoracic silhouette is enlarged, stable. Lungs: Multifocal opacities bilaterally without significant interval change. Mediastinum: Thoracic aortic atherosclerosis. Pleura: No appreciable effusion. No pneumothorax. Bones: Prior left clavicle plate and screw fixation. Upper abdomen: Unremarkable Other: Interval intubation. Endotracheal tube tip projects 3.4 cm proximal to the nic. IMPRESSION: Endotracheal tube tip projects 3.4 cm proximal to the nic. Electronically signed by: Srinath Huggins MD 02/10/2020 10:10 PM [facility]
[2020-02-11] MEDS: ALPRAZolam 0.25 MG TAB PO SCH (01:34)
[2020-02-11] MEDS: APIXABAN 5 MG TAB PO SCH (01:34)
[2020-02-11] MEDS: INSULIN LISPRO 100 UNITS/ML PEN SUBCU SCH (01:34)
[2020-02-11 01:48] VITALS: BP 113/68; TEMP 94.4
[2020-02-11 02:44] VITALS: O2SAT 91
[2020-02-11] MEDS ORDERED: PANTOPRAZOLE SODIUM TAB 40 MG PO SCH (06:30)
--- NOTE | 2020-02-11 08:19 | PN ---
SUPERVISING PHYSICIAN: Kenn Alarcon MD CRITICAL CARE DATE: 02/10/20 SUBJECTIVE: The patient has been showing to be with significant desaturations and slowly deteriorating on BiPAP. At shift change the patient was noted to be desatting pretty quickly, ABG was done and showed to be hypoxic even with maximum assistance on BiPAP. At time, we tried to talk with the patient who was still lucid at that time and family members including his that the best course of action at this this point was to intubate the patient to maintain his airway and support his respiratory efforts. OBJECTIVE: VITAL SIGNS: Prior to admission showed temperature 98.8, pulse 81, blood pressure 123/78. He was maintaining 85% on BiPAP at 100% FIO2. GENERAL: The patient is on BiPAP and looks tired but he is alert. He will react and follow commands but is obviously exhausted. CHEST: Lung sounds are significantly diminished. HEART: Regular. ABDOMEN: Soft. EXTREMITIES: No edema. NEUROLOGIC: Alert and oriented times three. LABORATORY: ABG at that time prior to intubation showed pH of 7.3 with P02 of 47, PC02 of 54, essential 92% on BiPAP at 115 FI02. Repeat chest x-ray prior to intubation showed patchy multifocal infiltrate bilaterally without any significant interval changes. ASSESSMENT: 1. COVID pneumonitis with acute respiratory failure with severe hypoxia requiring intubation and mechanical ventilation. 2. Hypertension, stable. 3. Diabetes mellitus, type 2. PLAN: Mr. Santoyo was intubated and placed on the ventilator. After discussing the case with Dr. Alarcon, supervising physician, the family and the patient, anesthesia was contacted, Rober Hernandez, who assisted with intubation and sedated the patient. Transfer was secured at [facility] after talking with acute care nurse practitioner, Blanca Plascencia, and acceptance of Dr. Balderas. The patient was then intubated by Rober Hernandez, please see his note. The patient was intubated with an 8.0 ET tube without any complications. He was sedated with propofol, Versed and fentanyl and paralytics included succinylcholine and rocuronium. Post intubation, breath sounds were noted in all 4 porter. He had a good capnography with an end tidal CO2 showing at 40 initially. Placement by radiology was confirmed with chest x-ray. The patient was showing stable vital signs. Please see the nurses flow sheet for vital signs post intubation. He was re-sedated prior to transfer and given additional paralytics in the form of rocuronium with Versed. The patient was showing to be stable at time of transfer and report was given to flight crew and the patient was transferred via air ambulance in critical but in stable condition. CRITICAL CARE TIME spent for evaluation and treatment of the patient with coordination of care with nursing, respiratory staff and phone calls to receiving facility and chart review, order detailer and documentation is 45 minutes. #[id number] [facility]
[2020-02-11] MEDS ORDERED: FUROSEMIDE 40 MG TAB PO SCH (09:00)
--- NOTE | 2020-02-24 10:30 | DS ---
SUPERVISING PHYSICIAN: Kenn Alarcon MD ADMISSION DIAGNOSIS: 1. COVID-19 pneumonitis with developing pneumonia failing both inpatient and outpatient treatment plan, currently requiring BiPAP. 2. Hypertension. 3. Diabetes mellitus, type 2. DISCHARGE DIAGNOSIS: 1. COVID pneumonitis with acute respiratory failure with severe hypoxia requiring intubation and mechanical ventilation. 2. Hypertension, stable. 3. Diabetes mellitus, type 2. REASON FOR HOSPITALIZATION: Mr. Santoyo is a 74 year-old male patient who presented to the Emergency Room with low 02 saturations. He was diagnosed with COVID initially on 01/31/20. He was actually admitted to the hospital for treatment of COVID and was treated with Remdesivir, azithromycin, Rocephin, Decadron, and was discharged home on 02/02/90. He presented to the Emergency Room this morning initially short of breath and requiring high flow nonrebreather just to maintain 02 saturations above 92% and actually had to be transitioned to BiPAP while in the Emergency Room. Plans were made to try to transfer the patient to high-level care, however, there are no beds available and the patient is showing to be fairly stable at this point. Therefore, he is going to be admitted for further management of COVID pneumonitis and pneumonia, having failed to respond to previous treatment plan. LABORATORY: White count 5,000 at discharge. He did have a left shift. Coagulation studies showed D-dimer 876. Blood gas analysis prior to discharge showed pO2 47, pCO2 54, pH 7.4, saturation 82%. Chemistries showed creatinine 0.5. Liver functions all within normal limits. C-reactive protein 16.5. Urinalysis showed 100 of protein with 500 of glucose, otherwise within normal limits. MICROBIOLOGY: Blood cultures were negative growth after 5 days. RADIOLOGY: Post intubation x-ray showed endotracheal tube projects 3.4 cm from the nic. There were multifocal opacities bilaterally without any significant interval changes. No pneumothorax. He also had a CT of the chest on admission and per radiologic interpretation showed no pulmonary embolus noted. There was diffuse ground glass and consolidation lung disease consistent with COVID pneumonia. Please see that report for details. HOSPITAL COURSE: Mr. Santoyo was admitted from the Emergency Room with COVID pneumonitis as he was not able to be transferred at initial time of admission. His vital signs showed saturation 91% on 4 liters nasal cannula and then was changed to BiPAP. He progressively worsened on BiPAP to the point where he was only maintaining 87% at rest with 100% FIO2. Therefore, he was showing evidence of acute respiratory failure and after discussion with his family and the patient, the decision was made to support his respiratory efforts through intubation and transfer to higher level of care. He was treated while in the hospital with Decadron, Zosyn, Remdesivir, albuterol, Levaquin and he was already on Eliquis. He was intubated with assistance of Rober Hernandez CRNA, with no complications after arrangements were made to transfer him to [facility] in [place] accepted by Dr. Balderas after multiple attempts at other hospitals with patient capacity being at max. He was kept sedated with fentanyl and Versed and was given paralytics for vent control. Prior to discharge, he was stable on a ventilator, but critical with his vital signs at discharge showing saturation 94-96%. Please see ventilator settings under respiratory notes and see last pneumonia for further details on intubation. PLAN: The patient was discharged and transferred to [facility] in [place], [place], per Dr. Balderas. CONDITION ON DISCHARGE: Critical, but stable. DISPOSITION: The patient was transferred via air ambulance to [facility] in [place], [place]. #[id number] [facility]TDD
== END 2020-02-10 22:20 | disposition short-term general hospital (02) | DRG 208 ==
LOC: ER 06:10 → OBSVTOIN 12:24 → MS 12:24
PROVIDERS: ADMIT Nurse Practitioner Family; ATTEND Nurse Practitioner Family
PROC: B32T1ZZ Computerized Tomography (CT Scan) of Left Pulmonary Artery using Low Osmolar Contrast (ICD-10-PCS; 2020-02-09)
PROC: B32S1ZZ Computerized Tomography (CT Scan) of Right Pulmonary Artery using Low Osmolar Contrast (ICD-10-PCS; 2020-02-09)
PROC: XW033E5 Introduction of Remdesivir Anti-infective into Peripheral Vein, Percutaneous Approach, New Technology Group 5 (ICD-10-PCS; 2020-02-09)
PROC: 0BH17EZ Insertion of Endotracheal Airway into Trachea, Via Natural or Artificial Opening (ICD-10-PCS; principal; 2020-02-10)
PROC: 5A1935Z Respiratory Ventilation, Less than 24 Consecutive Hours (ICD-10-PCS; 2020-02-10)
DX: U07.1 COVID-19 (principal); J12.89 Other viral pneumonia; J96.01 Acute respiratory failure with hypoxia; I10 Essential (primary) hypertension; E11.9 Type 2 diabetes mellitus without complications; Z95.5 Presence of coronary angioplasty implant and graft; I25.10 Atherosclerotic heart disease of native coronary artery without angina pectoris; Z79.01 Long term (current) use of anticoagulants; Z79.84 Long term (current) use of oral hypoglycemic drugs; Z79.52 Long term (current) use of systemic steroids; Z88.1 Allergy status to other antibiotic agents; Z87.891 Personal history of nicotine dependence; Z99.81 Dependence on supplemental oxygen